=== PATIENT | male | born 1975 | race Caucasian/White ===

== ENCOUNTER 2017-03-31 10:18 | Emergency (ER) | payer SELFPAY ==
[~2017-03-31] VITALS: Ht 182.9 cm; Wt 100.0 kg
[2017-03-31 10:20] VITALS: BP 139/79; PULSE 86; RESP 15; TEMP 98.5; O2SAT 100
[2017-03-31 10:36] VITALS: BP 133/63; PULSE 79; RESP 18; O2SAT 99
[2017-03-31] MEDS ORDERED: SODIUM CHLOR 0.9% 1000 ML INJ 1,000 ML IV ONE (11:15)
[2017-03-31] MEDS ORDERED: PROCHLORPERAZINE INJ 10 MG/2 ML VIAL IV PUSH ONE (11:15)
[2017-03-31] MEDS ORDERED: diphenhydrAMINE HCL 50 MG/ML VIAL IV PUSH ONE (11:15)
[2017-03-31 11:44] LABS: AUTOMATED NEUTROPHIL # 3.7 TH/MM3 (1.8-7.7); BASOPHIL % 0.6 % (0.0-2.0); EOSINOPHIL % 0.7 % (0.0-4.0); HEMATOCRIT 41.6 % (39.0-51.0); HEMO FLAGS DIFF FINAL; LYMPH % 21.7 % (9.0-44.0); LYMPHOCYTE # 1.2 TH/MM3 (1.0-4.8); MEAN CELL VOLUME 89.4 FL (80.0-100.0); MEAN CORPUSCULAR HEMOGLOBIN 29.9 PG (27.0-34.0); MEAN CORPUSCULAR HGB CONC 33.4 % (32.0-36.0); MONO % 12.3 % (0.0-8.0); NEUT % 64.7 % (16.0-70.0); PLATELET COUNT 338 TH/MM3 (150-450); RED BLOOD COUNT 4.65 MIL/MM3 (4.50-5.90); RED CELL DISTRIBUTION WIDTH 13.9 % (11.6-17.2); WHITE BLOOD COUNT 5.7 TH/MM3 (4.0-11.0)
[2017-03-31 12:07] LABS: BICARBONATE 28.6 MEQ/L (21.0-32.0)
[2017-03-31 12:48] VITALS: BP 115/54; PULSE 69; RESP 17; TEMP 99.4; O2SAT 98
--- NOTE | 2017-03-31 14:06 | RADRPT ---
EXAM DATE/TIME: 03/31/2017 13:37 [facility] COMPARISON: No previous studies available for comparison. INDICATIONS : Headache. RADIATION DOSE: 56.35 CTDIvol (mGy) MEDICAL HISTORY : Hypertension. SURGICAL HISTORY : None. ENCOUNTER: Initial ACUITY: 2 days PAIN SCALE: 5/10 LOCATION: Bilateral cranial TECHNIQUE: Multiple contiguous axial images were obtained of the head. Using automated exposure control and adj ustment of the mA and/or kV according to patient size, radiation dose was kept as low as reasonably a chievable to obtain optimal diagnostic quality images. DICOM format image data is available electro nically for review and comparison. FINDINGS: CEREBRUM: The ventricles are normal for age. No evidence of midline shift, mass lesion, hemorrhage or acute in farction. No extra-axial fluid collections are seen. POSTERIOR FOSSA: The cerebellum and brainstem are intact. The 4th ventricle is midline. The cerebellopontine angle i s unremarkable. EXTRACRANIAL: The visualized portion of the orbits is intact. SKULL: The calvaria is intact. No evidence of skull fracture. CONCLUSION: Unremarkable noncontrast exam. Carmine Bolton MD on March 31, 2017 at 14:03 Board Certified Radiologist. This report was verified electronically.
[2017-03-31] MEDS ORDERED: NAPR500T PO (14:20)
--- NOTE | 2017-03-31 14:20 | PD ---
HPI Chief Complaint: Headache Time Seen by Provider: 10:57 Travel History International Travel<30 days: No Contact w/Intl Traveler<30days: No Traveled to known affect area: No History of Present Illness HPI This is a 41-year-old male who presents to the emergency department with several days of a headache right behind his eyes, constant, moderate severity feeling like a throbbing associated with some photophobia. He denies any vomiting but does feel nauseous. He went to the ER for this the other day and he was given something for anxiety and something for GERD. He said he had some blood work done which showed that his LFTs were elevated but he did not have any CT imaging. He says he has a history of hepatitis C and is a former IV drug user. He denies any current drug use or alcohol use. He says he's been checking his blood pressure at home and every day this week it's been very high in the evenings in the 170s and 180s and he feels like this is when his headache gets worse. He said his headache was gradual in onset. He says he is prone to headaches and had headaches a lot when he was younger but hasn't had them in a while. PFSH Past Medical History Anxiety: Yes Cardiovascular Problems: Yes (MURMUR) High Cholesterol: Yes Diabetes: No Diminished Hearing: No Hypertension: Yes Tetanus Vaccination: Unknown Influenza Vaccination: No Family History Family Myocardial Infarction: Yes Social History Alcohol Use: No Tobacco Use: Yes Substance Use: Yes (IV drug user) Allergies-Medications (Allergen,Severity, Reaction): Coded Allergies: No Known Allergies (Unverified , 03/31/17) Reported Meds & Prescriptions Reported Meds & Active Scripts Active No Active Prescriptions or Reported Medications Review of Systems Except as stated in HPI: all other systems reviewed are Neg Physical Exam Narrative GENERAL:Well appearing, no acute distress SKIN: Focused skin assessment warm and dry. HEAD: Atraumatic. Normocephalic. EYES: Pupils equal and round. No injection or drainage. ENT: Moist mucous membranes NECK: Trachea midline. CARDIOVASCULAR: Regular rate and rhythm. No murmur appreciated. RESPIRATORY: Clear to auscultation. Breath sounds equal bilaterally. GASTROINTESTINAL: Abdomen soft, non-tender, nondistended. MUSCULOSKELETAL: No obvious deformities. NEUROLOGICAL: Awake and alert. No obvious cranial nerve deficits. No dysarthria or aphasia. No upper or lower extremity drift. No upper extremity ataxia. Visual mahoney intact. PSYCHIATRIC: Appropriate mood and affect; insight and judgment normal. Data Data Last Documented VS Vital Signs Date Time Temp Pulse Resp B/P (MAP) Pulse Ox O2 Delivery O2 Flow Rate FiO2 03/31/17 12:48 99.4 69 17 115/54 (74) 98 Room Air Orders Orders Complete Blood Count With Diff (03/31/17 11:03) Basic Metabolic Panel (Bmp) (03/31/17 11:03) ^ Insert Iv (03/31/17 11:03) Ct Brain W/O Iv Contrast(Rout) (03/31/17 ) Prochlorperazine Inj (Compazine Inj) (03/31/17 11:15) Diphenhydramine Inj (Benadryl Inj) (03/31/17 11:15) Sodium Chlor 0.9% 1000 Ml Inj (Ns 1000 M (03/31/17 11:15) Labs Laboratory Tests Test 03/31/17 11:20 White Blood Count 5.7 TH/MM3 Red Blood Count 4.65 MIL/MM3 Hemoglobin 13.9 GM/DL Hematocrit 41.6 % Mean Corpuscular Volume 89.4 FL Mean Corpuscular Hemoglobin 29.9 PG Mean Corpuscular Hemoglobin Concent 33.4 % Red Cell Distribution Width 13.9 % Platelet Count 338 TH/MM3 Mean Platelet Volume 6.1 FL Neutrophils (%) (Auto) 64.7 % Lymphocytes (%) (Auto) 21.7 % Monocytes (%) (Auto) 12.3 % Eosinophils (%) (Auto) 0.7 % Basophils (%) (Auto) 0.6 % Neutrophils # (Auto) 3.7 TH/MM3 Lymphocytes # (Auto) 1.2 TH/MM3 Monocytes # (Auto) 0.7 TH/MM3 Eosinophils # (Auto) 0.0 TH/MM3 Basophils # (Auto) 0.0 TH/MM3 CBC Comment DIFF FINAL Differential Comment Blood Urea Nitrogen 7 MG/DL Creatinine 1.18 MG/DL Random Glucose 78 MG/DL Calcium Level 8.3 MG/DL Sodium Level 141 MEQ/L Potassium Level 4.0 MEQ/L Chloride Level 107 MEQ/L Carbon Dioxide Level 28.6 MEQ/L Anion Gap 5 MEQ/L Estimat Glomerular Filtration Rate 68 ML/MIN MDM Medical Decision Making Medical Screen Exam Complete: Yes Emergency Medical Condition: Yes Interpretation(s) No leukocytosis Electrolytes are reassuring Last [address] 03/31/17 0000 Signed Impressions: Service Date/Time: March 13:37 - CONCLUSION: Unremarkable noncontrast exam. Carmine Bolton MD Differential Diagnosis Hemorrhagic stroke, hypertensive urgency, hypertensive emergency, migraine headache, sinusitis, cluster headache, tension headache, subarachnoid hemorrhage Narrative Course This is a 41-year-old male who presents to the emergency Department with a gradual onset headache that feels similar to migraines he's had in the past. I don't suspect subarachnoid hemorrhage given the description of his symptoms, and his normal neurologic exam. I did obtain a CT because his blood pressures been running high and wanted to make sure he didn't have hypertensive bleed. This was normal. Labs are reassuring. His blood pressure has been normal in the emergency department so I don't think he requires any treatment at this time. He did seem really anxious when he first arrived. His symptoms improved significantly with Benadryl and Compazine as well as IV fluids. I think he benefit from an anti-inflammatory and he was given a referral to [facility] as an outpatient. Diagnosis Primary Impression: Headache Qualified Codes: R51 - Headache Patient Instructions: General Instructions Additional Instructions: If you develop severe worsening headache, persistent vomiting, numbness, weakness, difficulty walking or difficulty talking return to the emergency department immediately. Sometimes in the emergency department we did not identify the cause of headaches. If you continued to have headaches it is very important that you followup with your primary care physician as you may need further testing with an MRI. Med/Other Pt SpecificInfo: Prescription(s) given Scripts Naproxen (Naproxen) 500 Mg Tab 500 MG PO BID Y for PAIN SCALE 4 TO 10, #20 TAB 0 Refills Prov: Isabell Ma MD 03/31/17 Disposition: 01 DISCHARGE HOME Condition: Stable Isabell Ma MD Mar 31, 2017 14:20
[2017-03-31 14:45] VITALS: BP 115/65
== END 2017-03-31 14:50 | disposition home or self-care (01) ==
LOC: NEPD 10:18
DX: R51 Headache (principal); Z72.0 Tobacco use
CPT/HCPCS: 70450; 80048; 85025; 96361; 96374; 96375; 99285; J0780; J1200; J7030

== ENCOUNTER 2017-04-04 11:48 | Inpatient (IN) | payer SELFPAY ==
[~2017-04-04] VITALS: Ht 182.9 cm; Wt 98.0 kg
[~2017-04-04 11:48] MED LIST: NAPR500T PO
[2017-04-04 11:49] VITALS: BP 130/78; PULSE 80; RESP 16; TEMP 99.2; O2SAT 96
[2017-04-04] MEDS ORDERED: IOHEXOL 350 MG/ML 10 ML VIAL (for RAD DIAG) IVCONTRAST ONE (11:49)
[2017-04-04] MEDS ORDERED: SODIUM CHLOR 0.9% 1000 ML INJ 1,000 ML IV SCH (13:52)
--- NOTE | 2017-04-04 13:52 | PD ---
HPI Chief Complaint: Medical Clearance Time Seen by Provider: 13:43 Travel History International Travel<30 days: No Contact w/Intl Traveler<30days: No Traveled to known affect area: No History of Present Illness HPI 42-year-old male presents emergency department with 2 week history of worsening nausea, vomiting, and centralized abdominal discomfort. Patient states a history of hepatitis, reportedly both B and C diagnosed one year ago. Patient is currently not under any treatment for that. Patient states he was an IV drug user but hasn't used in 90 days. Patient denies alcohol use, but admits to occasional smoking. Patient also reports occasional and intermittent palpitations. Patient denies chest pain or shortness of breath however. Patient does also state bright red blood per rectum with bowel movement but states he has hemorrhoids. Patient has no history of abdominal surgery. Patient's chief complaint is of worsening heartburn which she states is "terrible". He is having it now. He has been treating it with Rolaids and baking soda without relief. Patient has no known drug allergies. PFSH Past Medical History Anxiety: Yes Cardiovascular Problems: Yes (MURMUR) High Cholesterol: Yes Diabetes: No Diminished Hearing: No Hypertension: Yes Social History Alcohol Use: No Tobacco Use: Yes Substance Use: Yes (IV drug user) Allergies-Medications (Allergen,Severity, Reaction): Coded Allergies: No Known Allergies (Unverified , 03/31/17) Reported Meds & Prescriptions Reported Meds & Active Scripts Active Naproxen 500 Mg Tab 500 Mg PO BID PRN Review of Systems General / Constitutional: Positive: Chills (at night.), No: Fever Eyes: No: Visual changes HENT: Positive: Headaches, No: Vertigo, Lightheadedness, Sore Throat, Rhinitis , Rhinorrhea, Congestion, Nosebleed, Neck Stiffness, Neck Pain, Dental Difficulties, Ear Discharge, Earache Cardiovascular: No: Chest Pain or Discomfort Respiratory: Positive: Night Sweats, No: Cough, Shortness of Breath, Wheezing Gastrointestinal: Positive: Nausea, Vomiting, Abdominal Pain, Loss of Appetite , No: Diarrhea Genitourinary: No: Dysuria Musculoskeletal: No: Pain Skin: No Rash Neurologic: No: Weakness Psychiatric: No: Depression Endocrine: No: Polydipsia Hematologic/Lymphatic: No: Easy Bruising Physical Exam Narrative GENERAL: Well-developed male in no obvious distress. SKIN: Warm and dry. Normal color. Normal turgor. HEAD: Atraumatic. Normocephalic. EYES: Pupils equal and round. No scleral icterus. No injection or drainage. ENT: No nasal bleeding or discharge. Mucous membranes pink and moist. Pharynx is clear. Airway is patent. NECK: Trachea midline. Supple nontender. CARDIOVASCULAR: Regular rate and rhythm. Patient is a 1-2 over 4 systolic murmur. This is known to the patient from childhood. RESPIRATORY: No accessory muscle use. Clear to auscultation. Breath sounds equal bilaterally. GASTROINTESTINAL: Abdomen soft, mild to moderate epigastric tenderness, nondistended. Negative Villarreal sign. Negative CVA tenderness. Hepatic and splenic margins not palpable. MUSCULOSKELETAL: Extremities without clubbing, cyanosis, or edema. No obvious deformities. NEUROLOGICAL: Awake and alert. No obvious cranial nerve deficits. Motor grossly within normal limits. Five out of 5 muscle strength in the arms and legs. Normal speech. PSYCHIATRIC: Appropriate mood and affect; insight and judgment normal. Data Data Last Documented VS Vital Signs Date Time Temp Pulse Resp B/P (MAP) Pulse Ox O2 Delivery O2 Flow Rate FiO2 04/04/17 16:40 73 16 122/72 (89) 100 Room Air 04/04/17 11:49 99.2 Orders Orders Complete Blood Count With Diff (04/04/17 13:52) Comprehensive Metabolic Panel (04/04/17 13:52) Lipase (04/04/17 13:52) Lactic Acid (04/04/17 13:52) Prothrombin Time / Inr (Pt) (04/04/17 13:52) Act Partial Throm Time (Ptt) (04/04/17 13:52) Urinalysis - C+S If Indicated (04/04/17 13:52) Ct Abd/Pel W Iv Contrast(Rout) (04/04/17 13:52) Iv Access Insert/Monitor (04/04/17 13:52) Ecg Monitoring (04/04/17 13:52) Oximetry (04/04/17 13:52) NPO (04/04/17 13:52) Ondansetron Inj (Zofran Inj) (04/04/17 14:00) Pantoprazole Inj (Protonix Inj) (04/04/17 14:00) Sodium Chlor 0.9% 1000 Ml Inj (Ns 1000 M (04/04/17 13:52) Sodium Chloride 0.9% Flush (Ns Flush) (04/04/17 14:00) Electrocardiogram (04/04/17 13:52) Al-Mag Hy-Si 40-40-4 Mg/Ml Liq (Mag-Al P (04/04/17 14:00) Lidocaine 2% Viscous (Xylocaine 2% Visco (04/04/17 14:00) Ckmb (Isoenzyme) Profile (04/04/17 13:52) Troponin I (04/04/17 13:52) Ammonia (04/04/17 14:06) CKMB (04/04/17 14:20) CKMB% (04/04/17 14:20) Iohexol 350 Inj (Omnipaque 350 Inj) (04/04/17 11:49) Labs Laboratory Tests Test 04/04/17 14:20 04/04/17 15:00 White Blood Count 6.4 TH/MM3 Red Blood Count 4.60 MIL/MM3 Hemoglobin 13.7 GM/DL Hematocrit 41.0 % Mean Corpuscular Volume 89.1 FL Mean Corpuscular Hemoglobin 29.7 PG Mean Corpuscular Hemoglobin Concent 33.3 % Red Cell Distribution Width 14.0 % Platelet Count 360 TH/MM3 Mean Platelet Volume 6.1 FL Neutrophils (%) (Auto) 57.9 % Lymphocytes (%) (Auto) 27.5 % Monocytes (%) (Auto) 12.8 % Eosinophils (%) (Auto) 0.9 % Basophils (%) (Auto) 0.9 % Neutrophils # (Auto) 3.7 TH/MM3 Lymphocytes # (Auto) 1.8 TH/MM3 Monocytes # (Auto) 0.8 TH/MM3 Eosinophils # (Auto) 0.1 TH/MM3 Basophils # (Auto) 0.1 TH/MM3 CBC Comment DIFF FINAL Differential Comment Prothrombin Time 10.6 SEC Prothromb Time International Ratio 1.0 RATIO Activated Partial Thromboplast Time 21.5 SEC Blood Urea Nitrogen 12 MG/DL Creatinine 1.27 MG/DL Random Glucose 64 MG/DL Total Protein 8.0 GM/DL Albumin 3.6 GM/DL Calcium Level 9.3 MG/DL Alkaline Phosphatase 60 U/L Aspartate Amino Transf (AST/SGOT) 54 U/L Alanine Aminotransferase (ALT/SGPT) 131 U/L Total Bilirubin 0.5 MG/DL Sodium Level 138 MEQ/L Potassium Level 4.1 MEQ/L Chloride Level 102 MEQ/L Carbon Dioxide Level 29.0 MEQ/L Anion Gap 7 MEQ/L Estimat Glomerular Filtration Rate 62 ML/MIN Lactic Acid Level 1.9 mmol/L Ammonia 22 MCMOL/L Total Creatine Kinase 358 U/L Creatine Kinase MB 1.5 NG/ML Creatine Kinase MB % 0.4 % Troponin I LESS THAN 0.02 NG/ML Lipase 200 U/L Urine Color YELLOW Urine Turbidity CLOUDY Urine pH 7.0 Urine Specific [place] 1.012 Urine Protein NEG mg/dL Urine Glucose (UA) NEG mg/dL Urine Ketones NEG mg/dL Urine Occult Blood NEG Urine Nitrite NEG Urine Bilirubin NEG Urine Urobilinogen LESS THAN 2.0 MG/DL Urine Leukocyte Esterase NEG Urine RBC 1 /hpf Urine WBC 8 /hpf Urine Amorphous Sediment RARE Microscopic Urinalysis Comment CULT NOT INDICATED MDM Medical Decision Making Medical Screen Exam Complete: Yes Emergency Medical Condition: Yes Differential Diagnosis Nausea and vomiting. Epigastric tenderness. Gastritis. Upper GI bleed. Hepatitis. Narrative Course EMR is reviewed and the patient was notably seen 4 days ago for headaches, and a CT scan of the brain without significant findings, and was prescribed Naprosyn 500 mg twice a day and was referred to [facility]. Patient appears medically stable at time of exam. Labs ordered including CBC, CMP, urinalysis, lipase, cardiac panel, and coags and ammonia level. EKG and chest x-ray is ordered. CT of the abdomen is ordered with IV contrast. IV access is obtained patient is given 4 mg of ondansetron IV, 40 mg pantoprazole IV, 1000 mL was normal saline bolus, and a GI cocktail by mouth. CBC is unremarkable. Coagulation studies are normal. CMP is unremarkable except for glucose of 64, AST of 54, ALT of 131, alkaline phosphatase is normal at 60. Ammonia is 22. Lactic acid is 1.9. Creatinine kinase is 358, and troponin is less than 0.02 Lipase is normal at 200. CT shows abnormal findings including: CONCLUSION: 1. Multiple loops of minimally distended fluid filled jejunum in the left upper quadrant with mild fecalization and apparent focal transition points in the left upper quadrant proximally and left midabdomen distally at the level of the proximal ileum. Although not completely decompressed, distal ileal loops are much smaller in caliber and not fluid-filled. Findings are most compatible with developing partial small bowel obstruction secondary to adhesions or inflammatory bowel disease in the appropriate clinical setting. Less likely differential considerations include developing gastroenteritis. Patient will be admitted for observation and bowel rest. Call was placed to the hospitalist for admission. Diagnosis Primary Impression: Gastritis Qualified Codes: K29.00 - Acute gastritis without bleeding Additional Impression: Small bowel obstruction, partial Admitting Information Admitting Physician Requests: Observation Condition: Stable Mehdi Curry Apr 04, 2017 13:52
[2017-04-04] MEDS ORDERED: ONDANSETRON HCL 4 MG/2 ML VIAL IVP ONE (14:00)
[2017-04-04] MEDS ORDERED: LIDOCAINE VISCOUS 2% SOLN 15 ML UDC PO ONE (14:00)
[2017-04-04] MEDS ORDERED: ALUMINUM/MAGNESIUM/SIMETH 30 ML CUP PO ONE (14:00)
[2017-04-04] MEDS ORDERED: PANTOPRAZOLE SODIUM 40 MG VIAL IVP ONE (14:00)
[2017-04-04 14:47] LABS: AUTOMATED NEUTROPHIL # 3.7 TH/MM3 (1.8-7.7); BASOPHIL # 0.1 TH/MM3 (0-0.2); BASOPHIL % 0.9 % (0.0-2.0); EOSINOPHIL # 0.1 TH/MM3 (0-0.4); EOSINOPHIL % 0.9 % (0.0-4.0); HEMO FLAGS DIFF FINAL; LYMPH % 27.5 % (9.0-44.0); LYMPHOCYTE # 1.8 TH/MM3 (1.0-4.8); MEAN CELL VOLUME 89.1 FL (80.0-100.0); MEAN CORPUSCULAR HEMOGLOBIN 29.7 PG (27.0-34.0); MEAN CORPUSCULAR HGB CONC 33.3 % (32.0-36.0); MONO % 12.8 % (0.0-8.0); NEUT % 57.9 % (16.0-70.0); PLATELET COUNT 360 TH/MM3 (150-450); WHITE BLOOD COUNT 6.4 TH/MM3 (4.0-11.0)
[2017-04-04 14:56] LABS: APTT (PATIENT) 21.5 SEC (24.3-30.1); PROTHROMBIN TIME - PATIENT 10.6 SEC (9.8-11.6)
[2017-04-04 15:04] LABS: ALT (GPT) 131 U/L (12-78); ANION GAP 7 MEQ/L (5-15); AST (GOT) 54 U/L (15-37); BLOOD UREA NITROGEN 12 MG/DL (7-18); CHLORIDE 102 MEQ/L (98-107); GLOMERULAR FILTRATION RATE 62 ML/MIN (>89); POTASSIUM 4.1 MEQ/L (3.5-5.1); SODIUM (NA) 138 MEQ/L (136-145)
[2017-04-04 15:19] LABS: ALKALINE PHOSPHATASE 60 U/L (45-117); CREATINE KINASE 358 U/L (39-308); TOTAL BILIRUBIN ADULT 0.5 MG/DL (0.2-1.0)
[2017-04-04 15:27] LABS: BLOOD, URINE NEG (NEG); GLUCOSE,URINE NEG (NEG); KETONE, URINE NEG (NEG); NITRITE,URINE NEG (NEG); URINE COLOR YELLOW (YELLW/STRAW)
[2017-04-04 15:32] LABS: CKMB 1.5 NG/ML (0.5-3.6)
[2017-04-04 15:32] LABS: COMMENT (UR) CULT NOT INDICATED; CULTURE IF INDICATED CULT NOT INDICATED
--- NOTE | 2017-04-04 16:34 | RADRPT ---
EXAM DATE/TIME: 04/04/2017 15:47 [facility] COMPARISON: No previous studies available for comparison. INDICATIONS : Epigastric burning and pain nausea and vomiting for one week. IV CONTRAST: 82 cc Omnipaque 350 (iohexol) IV ORAL CONTRAST: No oral contrast ingested. RADIATION DOSE: 9.96 CTDIvol (mGy) MEDICAL HISTORY : Hepatitis SURGICAL HISTORY : None. ENCOUNTER: Initial ACUITY: 1 week PAIN SCALE: 8/10 LOCATION: Abdomen TECHNIQUE: Volumetric scanning of the abdomen and pelvis was performed. Using automated exposure control and ad justment of the mA and/or kV according to patient size, radiation dose was kept as low as reasonably achievable to obtain optimal diagnostic quality images. DICOM format image data is available electro nically for review and comparison. FINDINGS: LOWER LUNGS: The visualized lower lungs are clear. LIVER: Homogeneous density without lesion. There is no dilation of the biliary tree. No calcified gallston es. SPLEEN: Normal size without lesion. PANCREAS: Within normal limits. KIDNEYS: Normal in size and shape. There is no mass, stone or hydronephrosis. ADRENAL GLANDS: Within normal limits. VASCULAR: There is no aortic aneurysm. BOWEL/MESENTERY: Examination is abnormal. There are multiple loops of minimally distended jejunum in the left upper qu adrant with some mild fecalization measuring up to 3.2 cm. There are apparent focal transition points in the left upper quadrant proximally and left midabdomen distally at the level of the proximal ileu m. No pneumatosis or free air. Remaining small bowel loops are smaller in caliber and not fluid-fille d old though not completely decompressed. Colon appears unremarkable. No significant free fluid or dr ainable fluid collection. ABDOMINAL WALL: Within normal limits. RETROPERITONEUM: There is no lymphadenopathy. BLADDER: No wall thickening or mass. REPRODUCTIVE: Prostate is mildly prominent and contains calcifications. INGUINAL: There is no lymphadenopathy or hernia. MUSCULOSKELETAL: Within normal limits for patient age. CONCLUSION: 1. Multiple loops of minimally distended fluid filled jejunum in the left upper quadrant with mild fe calization and apparent focal transition points in the left upper quadrant proximally and left midabd omen distally at the level of the proximal ileum. Although not completely decompressed, distal ileal loops are much smaller in caliber and not fluid-filled. Findings are most compatible with developing partial small bowel obstruction secondary to adhesions or inflammatory bowel disease in the appropria te clinical setting. Less likely differential considerations include developing gastroenteritis. Lorenzo Pisano MD on April 04, 2017 at 16:20 Board Certified Radiologist. This report was verified electronically.
[2017-04-04 16:40] VITALS: BP 122/72; PULSE 73; RESP 16; O2SAT 100
--- NOTE | 2017-04-04 17:30 | HHI.HP ---
[facility] Service [facility] Primary Care Physician No Primary Care Physician Admission Diagnosis Partial Small Bowel Obstruction Diagnoses: (1) Small bowel obstruction, partial Diagnosis: Principal Chief Complaint: abdominal pain Travel History International Travel<30 Days: No Contact w/Intl Traveler <30 Da: No Traveled to Known Affected Are: No History of Present Illness patient is a 42 y/o male with history of hepatitis B and C who presented to ER with abdominal pain. he was seen in ER a few days ago for the headache and was discharged home with Naproxen. he says that he's had abdominal pain, nausea, vomiting for the past two weeks. pain is more or less generalized. he says that he's had on and off rectal bleed. he had some fever and chills at home. there's no report of recent weight change although he says that he's lost his appetite.he doesn't recall any similar pain in the past. Review of Systems Constitutional: COMPLAINS OF: Change in appetite, DENIES: Fever, Chills, Night Sweats Eyes: DENIES: Blurred vision, Diplopia, Vision loss, Double Vision Ears, nose, mouth, throat: DENIES: Tinnitus, Vertigo, Throat pain, Epistaxis Respiratory: DENIES: Apneas, Cough, Snoring, Wheezing, Hemoptysis, Sputum production, Shortness of breath Cardiovascular: DENIES: Chest pain, Palpitations, Syncope, Dyspnea on Exertion , PND, Lower Extremity Edema, Orthopnea, Claudication Gastrointestinal: COMPLAINS OF: Abdominal pain, Bloody stools, Nausea, Vomiting , DENIES: Black stools, Constipation, Diarrhea, Difficulty Swallowing, Anorexia Genitourinary: DENIES: Urinary frequency, Urgency, Hematuria, Dysuria Musculoskeletal: DENIES: Joint pain, Muscle aches, Stiffness, Joint Swelling Integumentary: DENIES: Rash Neurologic: DENIES: Abnormal gait, Headache, Localized weakness, Paresthesias, Seizures, Speech Problems, Tremor, Poor Balance Psychiatric: DENIES: Anxiety, Confusion, Mood changes, Depression, Hallucinations, Agitation, Suicidal Ideation, Homicidal Ideation, Delusions Past Family Social History Past Medical History hepatitis B and C. Past Surgical History surgery on the elbow. Reported Medications none reported. Allergies: Coded Allergies: No Known Allergies (Unverified , 03/31/17) Active Ordered Medications Current Medications Ondansetron HCl (Zofran Inj) 4 mg ONCE ONCE IVP Last administered on 15:54; Start 04/04/17 at 14:00; Stop 04/04/17 at 14:01; Status DC Pantoprazole Sodium (Protonix Inj) 40 mg ONCE ONCE IVP Last administered on 15:54; Start 04/04/17 at 14:00; Stop 04/04/17 at 14:01; Status DC Sodium Chloride 1,000 ml @ 1,000 mls/hr Q1H IV Last administered on 04/04/17 15:53; Start 04/04/17 at 13:52; Stop 04/04/17 at 14:51; Status DC Sodium Chloride (NS Flush) 2 ml UNSCH PRN IV FLUSH FLUSH AFTER USING IV ACCESS ; Start 04/04/17 at 14:00 Al Hydrox/Mg Hydrox/Simethicone (Mag-Al Plus Susp Liq) 30 ml ONCE ONCE PO Last administered on 04/04/17 15:54; Start 04/04/17 at 14:00; Stop 04/04/17 at 14:01; Status DC Lidocaine HCl (Xylocaine 2% Viscous) 15 ml ONCE ONCE PO Last administered on 04/04/17 15:55; Start 04/04/17 at 14:00; Stop 04/04/17 at 14:01; Status DC Iohexol (Omnipaque 350 Inj) 82 ml STK-MED ONCE IVCONTRAST Last administered on 04/04/17 11:49; Start 04/04/17 at 11:49; Stop 04/04/17 at 16:06; Status DC Family History not relevant to this admission. Social History smokes a few cigarettes a day. doesn't drink. Ex-IV drug abuser. Physical Exam Vital Signs Vital Signs Date Time Temp Pulse Resp B/P (MAP) Pulse Ox O2 Delivery O2 Flow Rate FiO2 04/04/17 16:40 73 16 122/72 (89) 100 Room Air 04/04/17 11:49 99.2 80 16 130/78 (95) 96 Physical Exam GENERAL: This is a well-nourished, well-developed patient, in no apparent distress. SKIN: No rashes, ecchymoses or lesions. Cool and dry. HEAD: Atraumatic. Normocephalic. No temporal or scalp tenderness. EYES: Pupils equal round and reactive. Extraocular motions intact. No scleral icterus. No injection or drainage. ENT: Nose without bleeding, purulent drainage or septal hematoma. Throat without erythema, tonsillar hypertrophy or exudate. Uvula midline. Airway patent. NECK: Trachea midline. No JVD or lymphadenopathy. Supple, nontender, no meningeal signs. CARDIOVASCULAR: Regular rate and rhythm without murmurs, gallops, or rubs. RESPIRATORY: Clear to auscultation. Breath sounds equal bilaterally. No wheezes , rales, or rhonchi. GASTROINTESTINAL: Abdomen soft, mild generalized tenderness, nondistended. No hepato-splenomegaly, or palpable masses. No guarding. MUSCULOSKELETAL: Extremities without clubbing, cyanosis, or edema. No joint tenderness, effusion, or edema noted. No calf tenderness. Negative Homans sign bilaterally. NEUROLOGICAL: Awake and alert. Cranial nerves II through XII intact. Motor and sensory grossly within normal limits. Five out of 5 muscle strength in all muscle groups. Normal speech. Laboratory Laboratory Tests Test 04/04/17 14:20 04/04/17 15:00 White Blood Count 6.4 Red Blood Count 4.60 Hemoglobin 13.7 Hematocrit 41.0 Mean Corpuscular Volume 89.1 Mean Corpuscular Hemoglobin 29.7 Mean Corpuscular Hemoglobin Concent 33.3 Red Cell Distribution Width 14.0 Platelet Count 360 Mean Platelet Volume 6.1 Neutrophils (%) (Auto) 57.9 Lymphocytes (%) (Auto) 27.5 Monocytes (%) (Auto) 12.8 Eosinophils (%) (Auto) 0.9 Basophils (%) (Auto) 0.9 Neutrophils # (Auto) 3.7 Lymphocytes # (Auto) 1.8 Monocytes # (Auto) 0.8 Eosinophils # (Auto) 0.1 Basophils # (Auto) 0.1 CBC Comment DIFF FINAL Differential Comment Prothrombin Time 10.6 Prothromb Time International Ratio 1.0 Activated Partial Thromboplast Time 21.5 Blood Urea Nitrogen 12 Creatinine 1.27 Random Glucose 64 Total Protein 8.0 Albumin 3.6 Calcium Level 9.3 Alkaline Phosphatase 60 Aspartate Amino Transf (AST/SGOT) 54 Alanine Aminotransferase (ALT/SGPT) 131 Total Bilirubin 0.5 Sodium Level 138 Potassium Level 4.1 Chloride Level 102 Carbon Dioxide Level 29.0 Anion Gap 7 Estimat Glomerular Filtration Rate 62 Lactic Acid Level 1.9 Ammonia 22 Total Creatine Kinase 358 Creatine Kinase MB 1.5 Creatine Kinase MB % 0.4 Troponin I LESS THAN 0.02 Lipase 200 Urine Color YELLOW Urine Turbidity CLOUDY Urine pH 7.0 Urine Specific [place] 1.012 Urine Protein NEG Urine Glucose (UA) NEG Urine Ketones NEG Urine Occult Blood NEG Urine Nitrite NEG Urine Bilirubin NEG Urine Urobilinogen LESS THAN 2.0 Urine Leukocyte Esterase NEG Urine RBC 1 Urine WBC 8 Urine Amorphous Sediment RARE Microscopic Urinalysis Comment CULT NOT INDICATED Result Diagram: 04/04/17 1420 04/04/17 142 Imaging Last Impressions Abdomen/Pelvis CT 04/04/17 1352 Signed Impressions: Service Date/Time: Tuesday, April 04, 2017 15:47 - CONCLUSION: 1. Multiple loops of minimally distended fluid filled jejunum in the left upper quadrant with mild fecalization and apparent focal transition points in the left upper quadrant proximally and left midabdomen distally at the level of the proximal ileum. Although not completely decompressed, distal ileal loops are much smaller in caliber and not fluid-filled. Findings are most compatible with developing partial small bowel obstruction secondary to adhesions or inflammatory bowel disease in the appropriate clinical setting. Less likely differential considerations include developing gastroenteritis. MD Antoinette Galindo VTE Risk Assessment Howardrini VTE Risk Assessment: Mod/High Risk (score >= 2) VTE Pharm Contraindication: Hemorrhage Caprini Risk Assessment Model Point Value = 1 Point Value = 2 Point Value = 3 Point Value = 5 Age 41-60 Minor surgery BMI > 25 kg/m2 Swollen legs Varicose veins or History of unexplained or recurrent spontaneous Oral contraceptives or hormone replacement Sepsis (< 1 month) Serious lung disease, including pneumonia (< 1 month) Abnormal pulmonary function Acute myocardial infarction Congestive heart failure (< 1 month) History of inflammatory bowel disease Medical patient at bed rest Age 61-74 Arthroscopic surgery Major open surgery (> 45 min) Laparoscopic surgery (> 45 min) Malignancy Confined to bed (> 72 hours) Immobilizing plaster cast Central venous access Age >= 75 History of VTE Family history of VTE Factor V Leiden Prothrombin [id number] Lupus anticoagulant Anticardiolipin antibodies Elevated serum homocysteine Heparin-induced thrombocytopenia Other congenital or acquired thrombophilia Stroke (< 1 month) Elective arthroplasty Hip, pelvis, or leg fracture Acute spinal cord injury (< 1 month) Prophylaxis Regimen Total Risk Factor Score Risk Level Prophylaxis Regimen 0-1 Low Early ambulation 2 Moderate Order ONE of the following: *Sequential Compression Device (SCD) *Heparin 5000 units SQ BID 3-4 Higher Order ONE of the following medications: *Heparin 5000 units SQ TID *Enoxaparin/Lovenox 40 mg SQ daily (WT < 150 kg, CrCl > 30 mL/min) *Enoxaparin/Lovenox 30 mg SQ daily (WT < 150 kg, CrCl > 10-29 mL/min) *Enoxaparin/Lovenox 30 mg SQ BID (WT < 150 kg, CrCl > 30 mL/min) AND/OR *Sequential Compression Device (SCD) 5 or more Highest Order ONE of the following medications: *Heparin 5000 units SQ TID (Preferred with Epidurals) *Enoxaparin/Lovenox 40 mg SQ daily (WT < 150 kg, CrCl > 30 mL/min) *Enoxaparin/Lovenox 30 mg SQ daily (WT < 150 kg, CrCl > 10-29 mL/min) *Enoxaparin/Lovenox 30 mg SQ BID (WT < 150 kg, CrCl > 30 mL/min) AND *Sequential Compression Device (SCD) Assessment and Plan Assessment and Plan A/P - possible early small bowel obstruction with reported rectal bleed keep NPO- start on IV fluid- antiemetics as needed- consult GI -elevated LFT's due to hepatitis B and C- will monitor -DVT prophylaxis with SCD's- no chemical prophylaxis due to reported rectal bleed. Discussed Condition With ER and the patient. Physician Certification 2 Midnight Certification Type: Admission for Inpatient Services Order for Inpatient Services The services are ordered in accordance with Medicare regulations or non- Medicare payer requirements, as applicable. In the case of services not specified as inpatient-only, they are appropriately provided as inpatient services in accordance with the 2-midnight benchmark. Estimated LOS (days): 2 days is the estimated time the patient will need to remain in the hospital, assuming treatment plan goals are met and no additional complications. Post-Hospital Plan: Home Physician Certification 2 Midnight Certification Type: Admission for Inpatient Services Order for Inpatient Services The services are ordered in accordance with Medicare regulations or non- Medicare payer requirements, as applicable. In the case of services not specified as inpatient-only, they are appropriately provided as inpatient services in accordance with the 2-midnight benchmark. Estimated LOS (days): 2 days is the estimated time the patient will need to remain in the hospital, assuming treatment plan goals are met and no additional complications. Post-Hospital Plan: Home Billie Hanna MD Apr 04, 2017 17:30
[2017-04-04] MEDS ORDERED: ONDANSETRON HCL 4 MG/2 ML VIAL IV PUSH PRN (18:00)
[2017-04-04] MEDS: DEXT 5%-NACL 0.9% 1000 ML INJ 1,000 ML IV SCH (18:36)
[2017-04-04 20:28] VITALS: BP 134/70; PULSE 67; RESP 20; TEMP 98.2; O2SAT 98
[2017-04-05 00:38] VITALS: BP 115/56; PULSE 68; RESP 20; TEMP 98.6; O2SAT 98
[2017-04-05] MEDS: DEXT 5%-NACL 0.9% 1000 ML INJ 1,000 ML IV SCH ×2 (04:54→14:00)
[2017-04-05 07:37] LABS: AUTOMATED NEUTROPHIL # 2.8 TH/MM3 (1.8-7.7); BASOPHIL # 0.1 TH/MM3 (0-0.2); BASOPHIL % 1.1 % (0.0-2.0); EOSINOPHIL # 0.1 TH/MM3 (0-0.4); EOSINOPHIL % 1.9 % (0.0-4.0); HEMO FLAGS DIFF FINAL; LYMPH % 35.3 % (9.0-44.0); MEAN CELL VOLUME 89.2 FL (80.0-100.0); MEAN CORPUSCULAR HEMOGLOBIN 30.1 PG (27.0-34.0); MEAN CORPUSCULAR HGB CONC 33.8 % (32.0-36.0); MONO % 12.3 % (0.0-8.0); NEUT % 49.4 % (16.0-70.0); PLATELET COUNT 331 TH/MM3 (150-450); RED BLOOD COUNT 4.38 MIL/MM3 (4.50-5.90); RED CELL DISTRIBUTION WIDTH 13.8 % (11.6-17.2); WHITE BLOOD COUNT 5.6 TH/MM3 (4.0-11.0)
[2017-04-05 08:00] VITALS: BP 117/67; PULSE 66; RESP 16; TEMP 97.8; O2SAT 97
[2017-04-05 08:04] LABS: BICARBONATE 26.9 MEQ/L (21.0-32.0); POTASSIUM 3.9 MEQ/L (3.5-5.1)
--- NOTE | 2017-04-05 08:14 | HHI.PR ---
Subjective Remarks in no acute distress. abdominal pain is better. no nausea or vomiting. no BM. afebrile. Objective Vitals Vital Signs Date Time Temp Pulse Resp B/P (MAP) Pulse Ox O2 Delivery O2 Flow Rate FiO2 04/05/17 00:38 98.6 68 20 115/56 (75) 98 04/04/17 20:28 98.2 67 20 134/70 (91) 98 04/04/17 16:40 73 16 122/72 (89) 100 Room Air 04/04/17 11:49 99.2 80 16 130/78 (95) 96 I/O 04/04/17 04/04/17 04/04/17 04/05/17 04/05/17 04/05/17 07:00 15:00 23:00 07:00 15:00 23:00 Intake Total 1000 ml 1000 ml Balance 1000 ml 1000 ml Intake IV Total 1000 ml 1000 ml # Voids 4 Result Diagram: 04/05/17 0600 04/05/17 0600 Imaging Last Impressions Abdomen/Pelvis CT 04/04/17 1352 Signed Impressions: Service Date/Time: Tuesday, April 04, 2017 15:47 - CONCLUSION: 1. Multiple loops of minimally distended fluid filled jejunum in the left upper quadrant with mild fecalization and apparent focal transition points in the left upper quadrant proximally and left midabdomen distally at the level of the proximal ileum. Although not completely decompressed, distal ileal loops are much smaller in caliber and not fluid-filled. Findings are most compatible with developing partial small bowel obstruction secondary to adhesions or inflammatory bowel disease in the appropriate clinical setting. Less likely differential considerations include developing gastroenteritis. Lorenzo Pisano MD Objective Remarks GENERAL: This is a well-nourished, well-developed patient, in no apparent distress. CARDIOVASCULAR: Regular rate and regular rhythm without murmurs, gallops, or rubs. RESPIRATORY: Clear to auscultation. Breath sounds equal bilaterally. No wheezes , rales, or rhonchi. GASTROINTESTINAL: Abdomen soft, non-tender, nondistended. Normal, active bowel sounds MUSCULOSKELETAL: Extremities without clubbing, cyanosis, or edema. NEURO: Alert & Oriented x4 to person, place, time, situation. Moves all ext x4 Medications and IVs Current Medications Ondansetron HCl (Zofran Inj) 4 mg ONCE ONCE IVP Last administered on 15:54; Start 04/04/17 at 14:00; Stop 04/04/17 at 14:01; Status DC Pantoprazole Sodium (Protonix Inj) 40 mg ONCE ONCE IVP Last administered on 15:54; Start 04/04/17 at 14:00; Stop 04/04/17 at 14:01; Status DC Sodium Chloride 1,000 ml @ 1,000 mls/hr Q1H IV Last administered on 04/04/17 15:53; Start 04/04/17 at 13:52; Stop 04/04/17 at 14:51; Status DC Sodium Chloride (NS Flush) 2 ml UNSCH PRN IV FLUSH FLUSH AFTER USING IV ACCESS ; Start 04/04/17 at 14:00 Al Hydrox/Mg Hydrox/Simethicone (Mag-Al Plus Susp Liq) 30 ml ONCE ONCE PO Last administered on 04/04/17 15:54; Start 04/04/17 at 14:00; Stop 04/04/17 at 14:01; Status DC Lidocaine HCl (Xylocaine 2% Viscous) 15 ml ONCE ONCE PO Last administered on 04/04/17 15:55; Start 04/04/17 at 14:00; Stop 04/04/17 at 14:01; Status DC Iohexol (Omnipaque 350 Inj) 82 ml STK-MED ONCE IVCONTRAST Last administered on 04/04/17 11:49; Start 04/04/17 at 11:49; Stop 04/04/17 at 16:06; Status DC Dextrose/Sodium Chloride 1,000 ml @ 100 mls/hr Q10H IV Last administered on 04:54; Start 04/04/17 at 18:00 Ondansetron HCl (Zofran Inj) 4 mg Q8HR PRN IV PUSH NAUSEA; Start 04/04/17 at 18 :00 A/P Problem List: (1) Small bowel obstruction, partial ICD Code: K56.600 - Partial intestinal obstruction, unspecified as to cause Status: Acute Assessment and Plan A/P - possible early small bowel obstruction with reported rectal bleed keep NPO- continue IV fluid- antiemetics as needed- awaiting GI evaluation. -elevated LFT's due to hepatitis B and C- will monitor -DVT prophylaxis with SCD's- no chemical prophylaxis due to reported rectal bleed. Discharge Planning awaiting GI evaluation and recommendations. Billie Hanna MD Apr 05, 2017 08:14
--- NOTE | 2017-04-05 10:00 | EKG ---
Date Performed: 04/04/2017 Time Performed: 14:58:49 PTAGE: 42 years EKG: Sinus rhythm POSSIBLE LEFT ATRIAL ENLARGEMENT INCOMPLETE RIGHT BUNDLE BRANCH BLOCK BORDERLINE ECG PREVIOUS TRACING : 08/09/2015 10.53 Compared to prior tracing no significant change DOCTOR: Danie Mitchell Interpretating Date/Time 04/05/2017 09:56:57
--- NOTE | 2017-04-05 10:58 | PD.CONS ---
HPI History of Present Illness This is a 42 year old male who presented to the emergency room for evaluation of "flulike symptoms" for the past 2 weeks. He states that for the past 2 weeks he's been having frequent migraines, constant heartburn, intermittent nausea and vomiting, mild epigastric/right upper quadrant pain, mucus from his rectum, and bloody stools. He states that he does not typically have heartburn or reflux but these had a constantly for the past 2 weeks and has not had any relief with Tums, Rolaids, and baking soda. The pain in his epigastric area/ ruq is very mild and he describes it as an intermittent dull ache. He has intermittent nausea and vomiting without hematemesis. He denies any diarrhea. He reports that he has been constipated 1 day, but does not typically have any problems with this. He reports that he didn't have a normal bowel movement this morning. There is no blood in it. He reports that for the past few years he's been having intermittent clear mucous from his rectum and red blood mixed within his stool. He reports that when he has cirrhosis some moderate amount. He does not associate it with straining although he does have a history of hemorrhoids. He denies any weight loss. He denies any fevers or chills. He has had generalized malaise. CT scan abdomen and pelvis (04/04/17) revealed multiple loops of minimally distended fluid filled jejunum in the left upper quadrant with mild focalization and apparent focal transition points in the left upper quadrant proximally and left midabdomen distally at the level of the proximal ileum. Although not completely decompressed, distal ileal loops are much smaller in caliber and not fluid filled. Findings are most compatible with developing partial small bowel obstruction secondary to adhesions or inflammatory bowel disease in the appropriate clinical setting. Less likely differential considerations include developing gastroenteritis. He denies any family history of inflammatory bowel disease. His last colonoscopy was about 5 years ago. Clinically he is not distended and is no longer having nausea or vomiting. He had a normal bowel movement without bleeding earlier today. Of note he reports that he was diagnosed with both hepatitis B and C one year ago and is treatment hilaria. (Kateryna Vazquez) [facility] Past Medical History Reports hx of Hepatitis B and C Hemorrhoids Past Surgical History Surgery on elbow Colonoscopy (Kateryna Vazquez) Coded Allergies: No Known Allergies (Unverified , 03/31/17) Medications Allergies Coded Allergies Type Severity Reaction Last Updated Verified No Known Allergies 03/31/17 No Active Scripts Medications Dose Route/Sig Max Daily Dose Days Date Category Naproxen 500 Mg Tab 500 Mg PO BID PRN 03/31/17 Rx Family History Mother had diabetes Father from an [facility] Social History Smokes 2-3 cigarettes per day Does not use alcohol Denies illicit drug use, history of IV drug abuse (Kateryna Vazquez) Review of Systems Constitutional: COMPLAINS OF: Fatigue, DENIES: Fever, Weight loss, Chills, Change in appetite Respiratory: DENIES: Cough Cardiovascular: DENIES: Chest pain Gastrointestinal: COMPLAINS OF: Abdominal pain, Bloody stools, Constipation, Nausea, Vomiting, Heartburn, DENIES: Black stools, Diarrhea, Swelling of Abdomen , Hematemesis Musculoskeletal: COMPLAINS OF: Muscle aches Hematologic/lymphatic: DENIES: Bruising Neurologic: COMPLAINS OF: Headache Psychiatric: DENIES: Confusion (Kateryna Vazquez) GI Exam Vitals I&O Vital Signs Date Time Temp Pulse Resp B/P (MAP) Pulse Ox O2 Delivery O2 Flow Rate FiO2 04/05/17 08:00 97.8 66 16 117/67 (84) 97 04/05/17 00:38 98.6 68 20 115/56 (75) 98 04/04/17 20:28 98.2 67 20 134/70 (91) 98 04/04/17 16:40 73 16 122/72 (89) 100 Room Air 04/04/17 11:49 99.2 80 16 130/78 (95) 96 I/O 04/04/17 04/04/17 04/04/17 04/05/17 04/05/17 04/05/17 07:00 15:00 23:00 07:00 15:00 23:00 Intake Total 1000 ml 1000 ml Balance 1000 ml 1000 ml Intake IV Total 1000 ml 1000 ml # Voids 4 Imaging Last Impressions Abdomen/Pelvis CT 04/04/17 2762 Signed Impressions: Service Date/Time: Tuesday, April 04, 2017 15:47 - CONCLUSION: 1. Multiple loops of minimally distended fluid filled jejunum in the left upper quadrant with mild fecalization and apparent focal transition points in the left upper quadrant proximally and left midabdomen distally at the level of the proximal ileum. Although not completely decompressed, distal ileal loops are much smaller in caliber and not fluid-filled. Findings are most compatible with developing partial small bowel obstruction secondary to adhesions or inflammatory bowel disease in the appropriate clinical setting. Less likely differential considerations include developing gastroenteritis. Lorenzo Pisano MD Laboratory Test 04/04/17 14:20 04/04/17 15:00 04/05/17 06:00 White Blood Count 6.4 TH/MM3 5.6 TH/MM3 Red Blood Count 4.60 MIL/MM3 4.38 MIL/MM3 Hemoglobin 13.7 GM/DL 13.2 GM/DL Hematocrit 41.0 % 39.0 % Mean Corpuscular Volume 89.1 FL 89.2 FL Mean Corpuscular Hemoglobin 29.7 PG 30.1 PG Mean Corpuscular Hemoglobin Concent 33.3 % 33.8 % Red Cell Distribution Width 14.0 % 13.8 % Platelet Count 360 TH/MM3 331 TH/MM3 Mean Platelet Volume 6.1 FL 6.7 FL Neutrophils (%) (Auto) 57.9 % 49.4 % Lymphocytes (%) (Auto) 27.5 % 35.3 % Monocytes (%) (Auto) 12.8 % 12.3 % Eosinophils (%) (Auto) 0.9 % 1.9 % Basophils (%) (Auto) 0.9 % 1.1 % Neutrophils # (Auto) 3.7 TH/MM3 2.8 TH/MM3 Lymphocytes # (Auto) 1.8 TH/MM3 2.0 TH/MM3 Monocytes # (Auto) 0.8 TH/MM3 0.7 TH/MM3 Eosinophils # (Auto) 0.1 TH/MM3 0.1 TH/MM3 Basophils # (Auto) 0.1 TH/MM3 0.1 TH/MM3 CBC Comment DIFF FINAL DIFF FINAL Differential Comment Erythrocyte Sedimentation Rate 5 mm/hr Prothrombin Time 10.6 SEC Prothromb Time International Ratio 1.0 RATIO Activated Partial Thromboplast Time 21.5 SEC Blood Urea Nitrogen 12 MG/DL 10 MG/DL Creatinine 1.27 MG/DL 1.17 MG/DL Random Glucose 64 MG/DL 79 MG/DL Total Protein 8.0 GM/DL Albumin 3.6 GM/DL Calcium Level 9.3 MG/DL 8.4 MG/DL Alkaline Phosphatase 60 U/L Aspartate Amino Transf (AST/SGOT) 54 U/L Alanine Aminotransferase (ALT/SGPT) 131 U/L Total Bilirubin 0.5 MG/DL Sodium Level 138 MEQ/L 139 MEQ/L Potassium Level 4.1 MEQ/L 3.9 MEQ/L Chloride Level 102 MEQ/L 106 MEQ/L Carbon Dioxide Level 29.0 MEQ/L 26.9 MEQ/L Anion Gap 7 MEQ/L 6 MEQ/L Estimat Glomerular Filtration Rate 62 ML/MIN 69 ML/MIN Lactic Acid Level 1.9 mmol/L Ammonia 22 MCMOL/L Total Creatine Kinase 358 U/L Creatine Kinase MB 1.5 NG/ML Creatine Kinase MB % 0.4 % Troponin I LESS THAN 0.02 NG/ML Lipase 200 U/L Urine Color YELLOW Urine Turbidity CLOUDY Urine pH 7.0 Urine Specific [place] 1.012 Urine Protein NEG mg/dL Urine Glucose (UA) NEG mg/dL Urine Ketones NEG mg/dL Urine Occult Blood NEG Urine Nitrite NEG Urine Bilirubin NEG Urine Urobilinogen LESS THAN 2.0 MG/DL Urine Leukocyte Esterase NEG Urine RBC 1 /hpf Urine WBC 8 /hpf Urine Amorphous Sediment RARE Microscopic Urinalysis Comment CULT NOT INDICATED Physical Examination HEENT: Normocephalic; atraumatic; no jaundice. CHEST: CTA CARDIAC: RRR ABDOMEN: Soft, nondistended, nontender; no hepatosplenomegaly; bowel sounds are present in all four quadrants. EXTREMITIES: No clubbing, cyanosis, or edema. SKIN: Normal; no rash; no jaundice. 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 (Kateryna Vazquez) Assessment and Plan Plan ASSESSMENT: - PSBO with n/v, abdominal discomfort. CT scan abdomen and pelvis (04/04/17) revealed multiple loops of minimally distended fluid filled jejunum in the left upper quadrant with mild focalization and apparent focal transition points in the left upper quadrant proximally and left midabdomen distally at the level of the proximal ileum. Although not completely decompressed, distal ileal loops are much smaller in caliber and not fluid filled. Findings are most compatible with developing partial small bowel obstruction secondary to adhesions or inflammatory bowel disease in the appropriate clinical setting. Less likely differential considerations include developing gastroenteritis. He denies any family history of inflammatory bowel disease. Colonoscopy 5 years ago. Clinically he is not distended and is no longer having nausea or vomiting, although he is NPO. + normal bm today. Denies family hx of IBD. Clinically not distended, no n/v. good bm. Will prep for egd/colonoscopy in am. - Intermittent hematochezia/clear mucous from rectum. States he has had this for a long time and periodically has large amount of blood mixed within stool. Does have hx of hemorrhoids. CBC normal. Start clears and plan for egd/colonoscopy in am. - Severe GERD. Does not usually have this, but has had it constantly for 2 weeks. Add PPI. Will plan for EGD in am. - Elevated LFTs, with reported hx of Hepatitis B/C. T. Tili 0.5, ST 54, ALT 131 , Alk Phosph. Liver workup, Hep B/C viral load. - Generalized malaise, migraines, fatigue. PLAN: - Plan for egd/colonoscopy in am - Obtain consents - Clear liquids - NPO after MN - Golytely prep - Protonix 40mg po BID - AFP level - MAGDALENO, ASMA, AMA - Ceruloplasmin, Alpha 1 Antitrypsin - Ferritin, Iron saturation - Hep B Surface ag, surface ab, Core ab, DNA PCR - Hep C Viral load, genotype - CBC, CMP in am - Supportive care - Notify GI if unable to tolerate bowel prep - Further recommendations to follow based on results of above - Pt seen and examined by Dr. Diaz and myself and this note is written on his behalf (Kateryna Vazquez) Physician Comments Seen and examined with [employer]TERN[employer]< egd/colonoscopy planned. Previous colonoscopy fro rectal bleeding some years ago -ve for colitis. (Aleshia Diaz MD) Kateryna Vazquez Apr 05, 2017 10:58 Aleshia Diaz MD Apr 05, 2017 12:55
[2017-04-05 12:00] VITALS: BP 120/66; PULSE 66; RESP 17; TEMP 97; O2SAT 98
[2017-04-05 16:00] VITALS: BP 111/52; PULSE 77; RESP 16; TEMP 98.3; O2SAT 97
[2017-04-05] MEDS ORDERED: PEG (High)/E-LYTE SOLN 4000 ML BTL PO ONE (16:00)
[2017-04-05 16:45] LABS: TRANSFERRIN IRON PROFILE 527 MG/DL (200-360)
[2017-04-05 16:48] LABS: FERRITIN 15 NG/ML (26-388)
[2017-04-05 20:12] VITALS: BP 124/62; PULSE 79; RESP 20; TEMP 97.5; O2SAT 98
[2017-04-06 00:02] VITALS: BP 118/61; PULSE 59; RESP 20; TEMP 98.1; O2SAT 98
[2017-04-06] MEDS: DEXT 5%-NACL 0.9% 1000 ML INJ 1,000 ML IV SCH ×2 (05:00→10:00)
[2017-04-06 08:00] VITALS: BP 118/67; PULSE 67; RESP 17; TEMP 96.3; O2SAT 100
[2017-04-06] MEDS: SODIUM CHLORIDE 0.9% FLUSH 10 ML FLUSH IV FLUSH PRN ×2 (08:00→11:45)
[2017-04-06 10:07] LABS: BASOPHIL % 0.9 % (0.0-2.0); EOSINOPHIL # 0.1 TH/MM3 (0-0.4); EOSINOPHIL % 1.3 % (0.0-4.0); HEMATOCRIT 39.8 % (39.0-51.0); HEMO FLAGS DIFF FINAL; LYMPH % 29.6 % (9.0-44.0); LYMPHOCYTE # 1.6 TH/MM3 (1.0-4.8); MEAN CELL VOLUME 89.2 FL (80.0-100.0); MEAN CORPUSCULAR HGB CONC 33.6 % (32.0-36.0); MONO % 11.2 % (0.0-8.0); PLATELET COUNT 337 TH/MM3 (150-450); RED BLOOD COUNT 4.46 MIL/MM3 (4.50-5.90); RED CELL DISTRIBUTION WIDTH 13.6 % (11.6-17.2); WHITE BLOOD COUNT 5.2 TH/MM3 (4.0-11.0)
[2017-04-06] MEDS ORDERED: PROPOFOL 200 MG/20 ML AMP ONE (10:21)
[2017-04-06 10:41] LABS: ALT (GPT) 132 U/L (12-78); ANION GAP 4 MEQ/L (5-15); AST (GOT) 45 U/L (15-37); BICARBONATE 27.7 MEQ/L (21.0-32.0); BLOOD UREA NITROGEN 7 MG/DL (7-18); CHLORIDE 108 MEQ/L (98-107); GLOMERULAR FILTRATION RATE 67 ML/MIN (>89); POTASSIUM 4.1 MEQ/L (3.5-5.1); SODIUM (NA) 140 MEQ/L (136-145)
[2017-04-06 10:44] LABS: ALKALINE PHOSPHATASE 55 U/L (45-117); TOTAL BILIRUBIN ADULT 0.9 MG/DL (0.2-1.0)
[2017-04-06 11:34] LABS: HEPATITIS B SURFACE ANTIBODY 0 mIU/mL
[2017-04-06 12:00] VITALS: BP 127/84; PULSE 66; RESP 17; TEMP 96.8; O2SAT 100
[2017-04-06] MEDS ORDERED: PROT40TA PO (12:12)
--- NOTE | 2017-04-06 12:12 | HHI.PR ---
Subjective Remarks resting comfortably with no distress. no nausea or vomiting. abdominal pain is minimal. no other complaints. Objective Vitals Vital Signs Date Time Temp Pulse Resp B/P (MAP) Pulse Ox O2 Delivery O2 Flow Rate FiO2 04/06/17 10:50 67 18 127/69 (88) 99 04/06/17 10:35 65 18 126/70 (88) 98 04/06/17 10:35 65 126/70 (88) 98 04/06/17 10:30 60 16 103/64 (77) 97 04/06/17 10:27 85/50 (62) 95 04/06/17 10:20 93/52 (66) 97 04/06/17 10:20 97 Room Air 04/06/17 10:18 Nasal Cannula 04/06/17 10:14 Nasal Cannula 3 04/06/17 10:14 98.5 57 20 95/55 (68) 100 04/06/17 08:00 96.3 67 17 118/67 (84) 100 04/06/17 00:02 98.1 59 20 118/61 (80) 98 04/05/17 20:12 97.5 79 20 124/62 (82) 98 04/05/17 16:00 98.3 77 16 111/52 (71) 97 I/O 04/05/17 04/05/17 04/05/17 04/06/17 04/06/17 04/06/17 07:00 15:00 23:00 07:00 15:00 23:00 Intake Total 1000 ml 1780 ml 3519 ml Balance 1000 ml 1780 ml 3519 ml Intake Oral 780 ml 220 ml IV Total 1000 ml 1000 ml 3299 ml # Voids 4 5 6 # Bowel Movements 3 8 Result Diagram: 04/06/1790404/06/17904 Imaging Last Impressions Abdomen/Pelvis CT 04/04/17 1352 Signed Impressions: Service Date/Time: Tuesday, April 04, 2017 15:47 - CONCLUSION: 1. Multiple loops of minimally distended fluid filled jejunum in the left upper quadrant with mild fecalization and apparent focal transition points in the left upper quadrant proximally and left midabdomen distally at the level of the proximal ileum. Although not completely decompressed, distal ileal loops are much smaller in caliber and not fluid-filled. Findings are most compatible with developing partial small bowel obstruction secondary to adhesions or inflammatory bowel disease in the appropriate clinical setting. Less likely differential considerations include developing gastroenteritis. Lorenzo Pisano MD Objective Remarks GENERAL: This is a well-nourished, well-developed patient, in no apparent distress. CARDIOVASCULAR: Regular rate and regular rhythm without murmurs, gallops, or rubs. RESPIRATORY: Clear to auscultation. Breath sounds equal bilaterally. No wheezes , rales, or rhonchi. GASTROINTESTINAL: Abdomen soft, non-tender, nondistended. Normal, active bowel sounds MUSCULOSKELETAL: Extremities without clubbing, cyanosis, or edema. NEURO: Alert & Oriented x4 to person, place, time, situation. Moves all ext x4 Medications and IVs Current Medications Ondansetron HCl (Zofran Inj) 4 mg ONCE ONCE IVP Last administered on 15:54; Start 04/04/17 at 14:00; Stop 04/04/17 at 14:01; Status DC Pantoprazole Sodium (Protonix Inj) 40 mg ONCE ONCE IVP Last administered on 15:54; Start 04/04/17 at 14:00; Stop 04/04/17 at 14:01; Status DC Sodium Chloride 1,000 ml @ 1,000 mls/hr Q1H IV Last administered on 04/04/17 15:53; Start 04/04/17 at 13:52; Stop 04/04/17 at 14:51; Status DC Sodium Chloride (NS Flush) 2 ml UNSCH PRN IV FLUSH FLUSH AFTER USING IV ACCESS Last administered on 04/06/17 11:45; Start 04/04/17 at 14:00 Al Hydrox/Mg Hydrox/Simethicone (Mag-Al Plus Susp Liq) 30 ml ONCE ONCE PO Last administered on 04/04/17 15:54; Start 04/04/17 at 14:00; Stop 04/04/17 at 14:01; Status DC Lidocaine HCl (Xylocaine 2% Viscous) 15 ml ONCE ONCE PO Last administered on 04/04/17 15:55; Start 04/04/17 at 14:00; Stop 04/04/17 at 14:01; Status DC Iohexol (Omnipaque 350 Inj) 82 ml STK-MED ONCE IVCONTRAST Last administered on 04/04/17 11:49; Start 04/04/17 at 11:49; Stop 04/04/17 at 16:06; Status DC Dextrose/Sodium Chloride 1,000 ml @ 100 mls/hr Q10H IV Last administered on 05:00; Start 04/04/17 at 18:00 Ondansetron HCl (Zofran Inj) 4 mg Q8HR PRN IV PUSH NAUSEA; Start 04/04/17 at 18 :00 Polyethylene Glycol/ Electrolytes (Colyte Liq) 4,000 ml ONCE ONCE PO Last administered on 04/05/17 15:06; Start 04/05/17 at 16:00; Stop 04/05/17 at 16 :01; Status DC Propofol (Diprivan 200 Mg/20 ml Inj) 400 mg STK-MED ONCE .ROUTE ; Start at 10:21; Stop 04/06/17 at 10:22; Status DC A/P Assessment and Plan A/P - possible early small bowel obstruction with reported rectal bleed s/p panendoscopy- -elevated LFT's due to hepatitis B and C- will monitor -DVT prophylaxis with SCD's- Discharge Planning when cleared by GI. see med list. f/u; pcp and GI upon discharge. d/w the patient. Billie Hanna MD Apr 06, 2017 12:12
--- NOTE | 2017-04-06 12:16 | HHI.DS ---
Discharge Summary Admission Date Apr 04, 2017 at 17:31 Discharge Date: Apr 06, 2017 Admitting Diagnosis Partial Small Bowel Obstruction (1) Small bowel obstruction, partial ICD Code: K56.600 - Partial intestinal obstruction, unspecified as to cause Diagnosis: Principal Status: Acute Procedures panendoscopy Brief History - From Admission patient is a 42 y/o male with history of hepatitis B and C who presented to ER with abdominal pain. he was seen in ER a few days ago for the headache and was discharged home with Naproxen. he says that he's had abdominal pain, nausea, vomiting for the past two weeks. pain is more or less generalized. he says that he's had on and off rectal bleed. he had some fever and chills at home. there's no report of recent weight change although he says that he's lost his appetite.he doesn't recall any similar pain in the past. CBC/BMP: 04/06/17 0905 04/06/17 0905 Significant Findings Laboratory Tests Test 04/04/17 14:20 04/04/17 15:00 04/05/17 06:00 04/05/17 15:30 Mean Platelet Volume 6.1 FL (7.0-11.0) 6.7 FL (7.0-11.0) Monocytes (%) (Auto) 12.8 % (0.0-8.0) 12.3 % (0.0-8.0) Activated Partial Thromboplast Time 21.5 SEC (24.3-30.1) Random Glucose 64 MG/DL (74-106) Aspartate Amino Transf (AST/SGOT) 54 U/L (15-37) Alanine Aminotransferase (ALT/SGPT) 131 U/L (12-78) Estimat Glomerular Filtration Rate 62 ML/MIN (>89) 69 ML/MIN (>89) Total Creatine Kinase 358 U/L (39-308) Troponin I LESS THAN 0.02 NG/ML Urine Turbidity CLOUDY (CLEAR) Urine WBC 8 /hpf (0-5) Red Blood Count 4.38 MIL/MM3 (4.50-5.90) Calcium Level 8.4 MG/DL (8.5-10.1) Total Iron Binding Capacity 738 MCG/DL (250-450) Percent Iron Saturation 17.3 % (20-50) Ferritin 15 NG/ML (26-388) Test 04/06/17 09:05 Red Blood Count 4.46 MIL/MM3 (4.50-5.90) Mean Platelet Volume 6.9 FL (7.0-11.0) Monocytes (%) (Auto) 11.2 % (0.0-8.0) Albumin 3.3 GM/DL (3.4-5.0) Calcium Level 8.2 MG/DL (8.5-10.1) Aspartate Amino Transf (AST/SGOT) 45 U/L (15-37) Alanine Aminotransferase (ALT/SGPT) 132 U/L (12-78) Chloride Level 108 MEQ/L (98-107) Anion Gap 4 MEQ/L (5-15) Estimat Glomerular Filtration Rate 67 ML/MIN (>89) PE at Discharge GENERAL: This is a well-nourished, well-developed patient, in no apparent distress. CARDIOVASCULAR: Regular rate and regular rhythm without murmurs, gallops, or rubs. RESPIRATORY: Clear to auscultation. Breath sounds equal bilaterally. No wheezes , rales, or rhonchi. GASTROINTESTINAL: Abdomen soft, non-tender, nondistended. Normal, active bowel sounds MUSCULOSKELETAL: Extremities without clubbing, cyanosis, or edema. NEURO: Alert & Oriented x4 to person, place, time, situation. Moves all ext x4 Hospital Course - possible early small bowel obstruction with reported rectal bleed s/p panendoscopy- -elevated LFT's due to hepatitis B and C- will monitor -DVT prophylaxis with SCD's- Pt Condition on Discharge: Good Discharge Disposition: Discharge Home Discharge Time: <= 30 minutes Discharge Instructions DIET: Follow Instructions for: Heart Healthy Diet Activities you can perform: Regular-No Restrictions Billie Hanna MD Apr 06, 2017 12:16
[2017-04-06 16:00] VITALS: BP 118/65; PULSE 73; RESP 16; TEMP 97.3; O2SAT 98
[2017-04-06 16:07] LABS: ANA SCREEN NEG (NEG)
[2017-04-08 09:52] LABS: HCV RNA PCR IU/ML 13100 IU/mL (0-14); HCV RNA PCR LOGIU/ML 4.12 (0-1.18)
[2017-04-08 11:53] LABS: HEP B DNA R1 LESS THAN 20 IU/mL (0-19); HEP B DNA R2 LESS THAN 1.30 (<1.30)
[2017-04-10 03:50] LABS: MITOCHONDRIAL ABS LESS THAN 20.0 U (<=20.0)
== END 2017-04-06 17:09 | disposition home or self-care (01) | DRG 389 ==
LOC: NEPC 11:48 → NEDA 17:05 → OBSVTOIN 17:31 → N07A 18:21
PROVIDERS: ADMIT Internal Medicine; ATTEND Internal Medicine
PROC: 0DB58ZX Excision of Esophagus, Via Natural or Artificial Opening Endoscopic, Diagnostic (ICD-10-PCS; principal; 2017-04-06 09:45)
PROC: 0DB68ZX Excision of Stomach, Via Natural or Artificial Opening Endoscopic, Diagnostic (ICD-10-PCS; 2017-04-06 09:45)
DX: K56.51 Intestinal adhesions [bands], with partial obstruction (principal); B19.10 Unspecified viral hepatitis B without hepatic coma; K74.60 Unspecified cirrhosis of liver; I10 Essential (primary) hypertension; B19.20 Unspecified viral hepatitis C without hepatic coma; K21.9 Gastro-esophageal reflux disease without esophagitis; K29.00 Acute gastritis without bleeding; K64.9 Unspecified hemorrhoids; E78.00 Pure hypercholesterolemia, unspecified; G43.909 Migraine, unspecified, not intractable, without status migrainosus; F19.10 Other psychoactive substance abuse, uncomplicated; F17.210 Nicotine dependence, cigarettes, uncomplicated; K29.70 Gastritis, unspecified, without bleeding; K20.9 Esophagitis, unspecified; B96.81 Helicobacter pylori [H. pylori] as the cause of diseases classified elsewhere
CPT/HCPCS: 74177; 80048; 80053; 81001; 82103; 82105; 82140; 82390; 82550; 82552; 82728; 83520; 83540; 83550; 83605; 83690; 84484; 85025; 85610; 85652; 85730; 86038; 86255; 86317; 86704; 87340; 87517; 87522; 87902; 88305; 88312; 93005; 96361; 96374; 96375; C9113; J2405; J7030; J7042; Q9967

== ENCOUNTER 2017-05-08 21:17 | Emergency (ER) | payer SELFPAY ==
[~2017-05-08] VITALS: Ht 182.9 cm; Wt 98.0 kg
[2017-05-08 21:17] VITALS: BP 140/63; PULSE 64; RESP 16; TEMP 98.6; O2SAT 98
[~2017-05-08 21:17] MED LIST changes: -NAPR500T PO; +PROT40TA PO
[2017-05-08] MEDS ORDERED: SODIUM CHLOR 0.9% 1000 ML INJ 1,000 ML IV SCH (23:36)
--- NOTE | 2017-05-08 23:44 | PD ---
HPI Chief Complaint: Abdominal Pain Time Seen by Provider: 23:29 Travel History International Travel<30 days: No Contact w/Intl Traveler<30days: No Traveled to known affect area: No History of Present Illness HPI Patient complaining of left lower quadrant abdominal pain ongoing intermittently over the past week. Pain radiates superiorly and into his suprapubic region. Patient states pain feels similar to previous bowel obstruction. Patient denies anything making it better or worse. Patient reports he continues to pass gas. Reports having associated nausea but denies any vomiting. Denies any blood in stool or dark stool. Patient states he is on antibiotics for H. pylori. Denies any fevers, chest pain, shortness of breath, or loss change in bladder. Patient states he was having 3 bowel movements per day, but has been constipated over the past couple of days. PFS Past Medical History Anxiety: Yes Cancer: No Cardiovascular Problems: Yes (MURMUR) High Cholesterol: Yes Diabetes: No Diminished Hearing: No Endocrine: No Hypertension: Yes Thyroid Disease: No Tetanus Vaccination: Unknown Family History Family Myocardial Infarction: Yes Social History Alcohol Use: No Tobacco Use: Yes (1/2 PPD) Substance Use: No Allergies-Medications (Allergen,Severity, Reaction): Coded Allergies: No Known Allergies (Unverified , 03/31/17) Reported Meds & Prescriptions Reported Meds & Active Scripts Active Protonix (Pantoprazole Sodium) 40 Mg Tab 40 Mg PO DAILY Review of Systems Except as stated in HPI: all other systems reviewed are Neg Physical Exam Narrative GENERAL: Well-developed, overly nourished, in no acute distress, and non-ill appearing. SKIN: Focused skin assessment warm and dry. HEAD: Atraumatic. Normocephalic. EYES: Pupils equal and round. EOMI. No scleral icterus. No injection or drainage. ENT: No nasal bleeding or discharge. Mucous membranes pink and moist. NECK: Trachea midline. Supple. No nuclear rigidity. CARDIOVASCULAR: Regular rate and rhythm. No murmur appreciated. RESPIRATORY: No accessory muscle use. No respiratory distress. Clear to auscultation. Breath sounds equal bilaterally. GASTROINTESTINAL: Abdomen soft, nondistended, and no guarding. Hepatic and splenic margins not palpable. Normal bowel sounds 4. No pulsatile mass. Patient reports tenderness to palpation left lower quadrant. MUSCULOSKELETAL: No obvious deformities. No clubbing. No cyanosis. No edema. Full range of motion. NEUROLOGICAL: Awake and alert. No obvious cranial nerve deficits. Motor grossly within normal limits. Normal speech. PSYCHIATRIC: Appropriate mood and affect; insight and judgment normal. Data Data Last Documented VS Vital Signs Date Time Temp Pulse Resp B/P (MAP) Pulse Ox O2 Delivery O2 Flow Rate FiO2 05/09/17 02:32 05/09/17 00:01 98 Room Air 05/08/17 21:17 98.6 64 16 Orders Orders Complete Blood Count With Diff (05/08/17 23:36) Comprehensive Metabolic Panel (05/08/17 23:36) Lipase (05/08/17 23:36) Prothrombin Time / Inr (Pt) (05/08/17:36) Act Partial Throm Time (Ptt) (05/08/17 23:36) Urinalysis - C+S If Indicated (05/08/17 23:36) Ct Abd/Pel W Iv Contrast(Rout) (05/08/17 23:36) Iv Access Insert/Monitor (05/08/17 23:36) Ecg Monitoring (05/08/17 23:36) Oximetry (05/08/17 23:36) Ondansetron Inj (Zofran Inj) (05/08/17 23:45) Sodium Chlor 0.9% 1000 Ml Inj (Ns 1000 M (05/08/17 23:36) Sodium Chloride 0.9% Flush (Ns Flush) (05/08/17 23:45) Oral Contrast - Adult (05/08/17 23:57) Diatrizoate Liq ( Gastroview Liq) (05/09/17 00:02) Iohexol 350 Inj (Omnipaque 350 Inj) (05/09/17 02:06) Ed Discharge Order (05/09/17 02:30) Labs Laboratory Tests Test 05/08/17 23:50 White Blood Count 5.9 TH/MM3 Red Blood Count 4.70 MIL/MM3 Hemoglobin 13.4 GM/DL Hematocrit 40.9 % Mean Corpuscular Volume 87.0 FL Mean Corpuscular Hemoglobin 28.6 PG Mean Corpuscular Hemoglobin Concent 32.8 % Red Cell Distribution Width 13.8 % Platelet Count 357 TH/MM3 Mean Platelet Volume 6.2 FL Neutrophils (%) (Auto) 46.3 % Lymphocytes (%) (Auto) 36.2 % Monocytes (%) (Auto) 12.7 % Eosinophils (%) (Auto) 2.5 % Basophils (%) (Auto) 2.3 % Neutrophils # (Auto) 2.7 TH/MM3 Lymphocytes # (Auto) 2.1 TH/MM3 Monocytes # (Auto) 0.8 TH/MM3 Eosinophils # (Auto) 0.1 TH/MM3 Basophils # (Auto) 0.1 TH/MM3 CBC Comment DIFF FINAL Differential Comment Prothrombin Time 11.4 SEC Prothromb Time International Ratio 1.0 RATIO Activated Partial Thromboplast Time 22.3 SEC Urine Color YELLOW Urine Turbidity CLEAR Urine pH 6.0 Urine Specific [place] 1.031 Urine Protein TRACE mg/dL Urine Glucose (UA) NEG mg/dL Urine Ketones NEG mg/dL Urine Occult Blood NEG Urine Nitrite NEG Urine Bilirubin NEG Urine Urobilinogen 2.0 MG/DL Urine Leukocyte Esterase NEG Urine RBC 1 /hpf Urine WBC 1 /hpf Urine Mucus FEW /lpf Microscopic Urinalysis Comment CULT NOT INDICATED Blood Urea Nitrogen 8 MG/DL Creatinine 1.07 MG/DL Random Glucose 97 MG/DL Total Protein 7.5 GM/DL Albumin 3.4 GM/DL Calcium Level 8.3 MG/DL Alkaline Phosphatase 70 U/L Aspartate Amino Transf (AST/SGOT) 53 U/L Alanine Aminotransferase (ALT/SGPT) 157 U/L Total Bilirubin 0.4 MG/DL Sodium Level 140 MEQ/L Potassium Level 4.0 MEQ/L Chloride Level 106 MEQ/L Carbon Dioxide Level 28.8 MEQ/L Anion Gap 5 MEQ/L Estimat Glomerular Filtration Rate 76 ML/MIN Lipase 186 U/L MDM Medical Decision Making Medical Screen Exam Complete: Yes Emergency Medical Condition: Yes Differential Diagnosis Diverticulitis, bowel obstruction, ileus, UTI, metabolic disturbance, constipation, other Narrative Course The patient presented with nonspecific abdominal pain. There was no significant history of vomiting or diarrhea and no fever. The patient appeared comfortable, well hydrated and the abdominal exam was mildly tender without guarding or rebound to me. Laboratory and radiologic/CT evaluation revealed no significant abnormalities. There was no evidence of an acute, surgical abdomen at this time. There was no clinical evidence to support appendicitis, bowel obstruction , cholecystitis/cholelithiasis, pancreatitis, perforation of gastric ulcer, colitis, diverticulitis, bacterial peritonitis, obstruction, volvulus, hernial incarceration or strangulation at this time. There was no evidence to support vascular pathology such as AAA, mesenteric ischemia. There was also no clinical evidence by history, exam or risk factors to suggest atypical presentation of cardiac disease such as ACS, AMI or atypical angina. No evidence to suggest genitourinary etiology as well. Clinical picture was discussed with the patient , as well as plan of care. The patient was instructed to follow up with their physician. Abdominal pain warnings were discussed with the patient. The patient is to return if worsens, pain worsens or changes, develop fever, inability to tolerate fluids with or without vomiting, unable to establish follow up or as needed. The patient agrees with plan. Patient in no obvious distress upon re-evaluation. All pertinent laboratory/ Radiology result(s) discussed with patient. Any questions/concerns in reference to patient diagnosis/condition discussed and clarified prior to patient's discharge. Reinforced sheer importance of close follow up with patient 's primary physician or primary care clinic. Instructed patient to return to ED immediately, if symptoms return/worsen. Patient showed understanding of above instructions. Further instructions and recommendations were detailed in discharge paperwork. Patient ambulated without difficulty out of ED at discharge. Diagnosis Primary Impression: Abdominal pain Qualified Codes: R10.32 - Left lower quadrant pain Referrals: [facility] Patient Instructions: Abdominal Pain (ED), General Instructions Additional Instructions: Follow-up with your primary care physician this week for reevaluation. Follow up with GI as scheduled. Return to the emergency department if symptoms get worse. Disposition: 01 DISCHARGE HOME Condition: Stable Glen Tolbert May 08, 2017 23:43
[2017-05-08] MEDS ORDERED: ONDANSETRON HCL 4 MG/2 ML VIAL IVP ONE (23:45)
[2017-05-08] MEDS ORDERED: SODIUM CHLORIDE 0.9% FLUSH 10 ML FLUSH IV FLUSH PRN (23:45)
[2017-05-09 00:01] VITALS: O2SAT 98
[2017-05-09] MEDS ORDERED: DIATRIZOATE MEGLUM/DIATRIZOATE SOD 9 ML CUP ONE (00:02)
[2017-05-09 00:06] LABS: AUTOMATED NEUTROPHIL # 2.7 TH/MM3 (1.8-7.7); BASOPHIL # 0.1 TH/MM3 (0-0.2); BASOPHIL % 2.3 % (0.0-2.0); BLOOD, URINE NEG (NEG); COMMENT (UR) CULT NOT INDICATED; CULTURE IF INDICATED CULT NOT INDICATED; EOSINOPHIL # 0.1 TH/MM3 (0-0.4); EOSINOPHIL % 2.5 % (0.0-4.0); GLUCOSE,URINE NEG (NEG); HEMATOCRIT 40.9 % (39.0-51.0); HEMO FLAGS DIFF FINAL; KETONE, URINE NEG (NEG); LYMPH % 36.2 % (9.0-44.0); LYMPHOCYTE # 2.1 TH/MM3 (1.0-4.8); MEAN CORPUSCULAR HEMOGLOBIN 28.6 PG (27.0-34.0); MEAN CORPUSCULAR HGB CONC 32.8 % (32.0-36.0); MONO % 12.7 % (0.0-8.0); MUCUS URINE FEW /lpf (OCC); NEUT % 46.3 % (16.0-70.0); NITRITE,URINE NEG (NEG); PLATELET COUNT 357 TH/MM3 (150-450); RED CELL DISTRIBUTION WIDTH 13.8 % (11.6-17.2); URINE COLOR YELLOW (YELLW/STRAW); WHITE BLOOD COUNT 5.9 TH/MM3 (4.0-11.0)
[2017-05-09 00:17] LABS: APTT (PATIENT) 22.3 SEC (24.3-30.1); PROTHROMBIN TIME - PATIENT 11.4 SEC (9.8-11.6)
[2017-05-09 00:19] LABS: ALT (GPT) 157 U/L (12-78); ANION GAP 5 MEQ/L (5-15); AST (GOT) 53 U/L (15-37); BICARBONATE 28.8 MEQ/L (21.0-32.0); BLOOD UREA NITROGEN 8 MG/DL (7-18); CHLORIDE 106 MEQ/L (98-107); GLOMERULAR FILTRATION RATE 76 ML/MIN (>89); SODIUM (NA) 140 MEQ/L (136-145)
[2017-05-09 00:21] LABS: ALKALINE PHOSPHATASE 70 U/L (45-117); TOTAL BILIRUBIN ADULT 0.4 MG/DL (0.2-1.0)
[2017-05-09] MEDS ORDERED: IOHEXOL 350 MG/ML 10 ML VIAL (for RAD DIAG) IVCONTRAST ONE (02:06)
--- NOTE | 2017-05-09 02:22 | RADRPT ---
EXAM DATE/TIME: 05/09/2017 02:04 [facility] COMPARISON: CT ABDOMEN & PELVIS W CONTRAST, April 04, 2017, 15:47. INDICATIONS : Left lower quadrant pain x1 week. IV CONTRAST: 90 cc Omnipaque 350 (iohexol) IV ORAL CONTRAST: Prescribed oral contrast ingested. RADIATION DOSE: 9.90 CTDIvol (mGy) MEDICAL HISTORY : Hypertension. SURGICAL HISTORY : None. ENCOUNTER: Initial ACUITY: 1 week PAIN SCALE: 8/10 LOCATION: Left lower quadrant TECHNIQUE: Volumetric scanning of the abdomen and pelvis was performed. Using automated exposure control and ad justment of the mA and/or kV according to patient size, radiation dose was kept as low as reasonably achievable to obtain optimal diagnostic quality images. DICOM format image data is available electro nically for review and comparison. FINDINGS: LOWER LUNGS: The visualized lower lungs are clear. LIVER: Homogeneous density without lesion. There is no dilation of the biliary tree. No calcified gallston es. SPLEEN: Normal size without lesion. PANCREAS: Within normal limits. KIDNEYS: Normal in size and shape. There is no mass, stone or hydronephrosis. ADRENAL GLANDS: Within normal limits. VASCULAR: There is no aortic aneurysm. BOWEL/MESENTERY: The stomach, small bowel, and colon demonstrate no acute abnormality. There is no free intraperitone al air or fluid. ABDOMINAL WALL: Within normal limits. RETROPERITONEUM: There is no lymphadenopathy. BLADDER: No wall thickening or mass. REPRODUCTIVE: Within normal limits. INGUINAL: There is no lymphadenopathy or hernia. MUSCULOSKELETAL: Within normal limits for patient age. CONCLUSION: Normal examination. The small bowel gas pattern is entirely normal on this exam. I don't see any jack dence of obstruction in fact the oral contrast extends all the way into the cecum. Chris Givens MD on May 09, 2017 at 2:19 Board Certified Radiologist. This report was verified electronically.
== END 2017-05-09 02:46 | disposition home or self-care (01) ==
LOC: NEPD 21:17
DX: R10.32 Left lower quadrant pain (principal); R11.0 Nausea; K59.00 Constipation, unspecified; I10 Essential (primary) hypertension; E78.00 Pure hypercholesterolemia, unspecified; F17.200 Nicotine dependence, unspecified, uncomplicated; Z86.59 Personal history of other mental and behavioral disorders; Z86.79 Personal history of other diseases of the circulatory system
CPT/HCPCS: 74177; 80053; 81001; 83690; 85025; 85610; 85730; 96361; 96374; 99285; J2405; J7030; Q9963; Q9967

== ENCOUNTER 2017-10-02 17:15 | Emergency (ER) | payer BC ==
[~2017-10-02] VITALS: Ht 182.9 cm; Wt 95.5 kg
[2017-10-02 17:24] VITALS: BP 120/72; PULSE 81; RESP 18; TEMP 98.3; O2SAT 99
[2017-10-02] MEDS ORDERED: SODIUM CHLOR 0.9% 1000 ML INJ 1,000 ML IV SCH (18:49)
--- NOTE | 2017-10-02 18:58 | PD ---
HPI Chief Complaint: Abdominal Pain Time Seen by Provider: 18:21 Travel History International Travel<30 days: No Contact w/Intl Traveler<30days: No Traveled to known affect area: No History of Present Illness HPI The patient is a 42-year-old male who presents to the emergency department for epigastric abdominal pain and rectal bleeding. The patient notes a 2-3 day history of epigastric abdominal pain that occasionally radiates to the right flank. The patient then developed bloody stools, occasionally bright red blood and occasionally dark red blood. The patient does have a history of previous rectal bleeding, states he underwent a colonoscopy which revealed internal hemorrhoids which he had ligated. The patient denies any known history of gastritis or peptic ulcer disease. He does take BC powder occasionally for pain, denies any daily alcohol consumption. He denies any history of pancreatitis or biliary colic. He denies any previous abdominal surgeries. Symptoms are moderate. There are no current alleviating or exacerbating factors. The patient does not have a local primary physician. PFSH Past Medical History Anxiety: Yes Cancer: No Cardiovascular Problems: Yes (MURMUR) High Cholesterol: Yes Diabetes: No Diminished Hearing: No Endocrine: No Hypertension: Yes Thyroid Disease: No Past Surgical History Narrative Surgical Left elbow surgery Family History Family Myocardial Infarction: Yes Social History Alcohol Use: No Tobacco Use: Yes (1/2 PPD) Substance Use: No Allergies-Medications (Allergen,Severity, Reaction): Coded Allergies: No Known Allergies (Unverified , 03/31/17) Reported Meds & Prescriptions Reported Meds & Active Scripts Active Review of Systems Except as stated in HPI: all other systems reviewed are Neg General / Constitutional: No: Fever Cardiovascular: No: Chest Pain or Discomfort Respiratory: No: Shortness of Breath Gastrointestinal: Positive: Nausea, Vomiting, Abdominal Pain, Hematochezia, No : Diarrhea Musculoskeletal: No: Weakness Neurologic: No: Dizziness Physical Exam Narrative GENERAL: Awake, alert, pleasant 42-year-old male who appears his stated age and is in no acute respiratory distress. SKIN: Focused skin assessment warm/dry. HEAD: Atraumatic. Normocephalic. EYES: Pupils equal and round. No scleral icterus. No injection or drainage. ENT: No nasal bleeding or discharge. Mucous membranes pink and moist. NECK: Trachea midline. No JVD. CARDIOVASCULAR: Regular rate and rhythm. No murmur appreciated. RESPIRATORY: No accessory muscle use. Clear to auscultation. Breath sounds equal bilaterally. GASTROINTESTINAL: Abdomen soft, mild epigastric tenderness. No guarding or rigidity. Rectal: No gross blood. Slightly guaiac positive. MUSCULOSKELETAL: No obvious deformities. No clubbing. No cyanosis. No edema. NEUROLOGICAL: Awake and alert. No obvious cranial nerve deficits. Motor grossly within normal limits. Normal speech. PSYCHIATRIC: Appropriate mood and affect; insight and judgment normal. Data Data Last Documented VS Vital Signs Date Time Temp Pulse Resp B/P (MAP) Pulse Ox O2 Delivery O2 Flow Rate FiO2 10/02/17 17:24 98.3 81 18 120/72 (88) 99 Orders Orders Complete Blood Count With Diff (10/02/17 18:49) Comprehensive Metabolic Panel (10/02/17 18:49) Lipase (10/02/17 18:49) Prothrombin Time / Inr (Pt) (10/02/17 18:49) Act Partial Throm Time (Ptt) (10/02/17 18:49) Ct Abd/Pel W Iv Contrast(Rout) (10/02/17 18:49) Iv Access Insert/Monitor (10/02/17 18:49) Ecg Monitoring (10/02/17 18:49) Oximetry (10/02/17 18:49) Morphine Inj (Morphine Inj) (10/02/17 19:00) Ondansetron Inj (Zofran Inj) (10/02/17 19:00) Pantoprazole Inj (Protonix Inj) (10/02/17 19:00) Sodium Chlor 0.9% 1000 Ml Inj (Ns 1000 M (10/02/17 18:49) Sodium Chloride 0.9% Flush (Ns Flush) (10/02/17 19:00) Type And Screen (10/02/17 18:49) Iohexol 350 Inj (Omnipaque 350 Inj) (10/02/17 19:26) Ed Discharge Order (10/02/17 20:25) Labs Laboratory Tests Test 10/02/17 18:54 White Blood Count 9.1 TH/MM3 Red Blood Count 4.93 MIL/MM3 Hemoglobin 14.1 GM/DL Hematocrit 42.0 % Mean Corpuscular Volume 85.2 FL Mean Corpuscular Hemoglobin 28.5 PG Mean Corpuscular Hemoglobin Concent 33.5 % Red Cell Distribution Width 13.9 % Platelet Count 293 TH/MM3 Mean Platelet Volume 6.5 FL Neutrophils (%) (Auto) 67.1 % Lymphocytes (%) (Auto) 18.1 % Monocytes (%) (Auto) 13.2 % Eosinophils (%) (Auto) 1.1 % Basophils (%) (Auto) 0.5 % Neutrophils # (Auto) 6.1 TH/MM3 Lymphocytes # (Auto) 1.6 TH/MM3 Monocytes # (Auto) 1.2 TH/MM3 Eosinophils # (Auto) 0.1 TH/MM3 Basophils # (Auto) 0.0 TH/MM3 CBC Comment DIFF FINAL Differential Comment Prothrombin Time 10.6 SEC Prothromb Time International Ratio 1.0 RATIO Activated Partial Thromboplast Time 23.1 SEC Blood Urea Nitrogen 12 MG/DL Creatinine 1.16 MG/DL Random Glucose 82 MG/DL Total Protein 7.6 GM/DL Albumin 3.7 GM/DL Calcium Level 8.3 MG/DL Alkaline Phosphatase 79 U/L Aspartate Amino Transf (AST/SGOT) 46 U/L Alanine Aminotransferase (ALT/SGPT) 138 U/L Total Bilirubin 0.6 MG/DL Sodium Level 138 MEQ/L Potassium Level 3.6 MEQ/L Chloride Level 104 MEQ/L Carbon Dioxide Level 29.2 MEQ/L Anion Gap 5 MEQ/L Estimat Glomerular Filtration Rate 69 ML/MIN Lipase 142 U/L MDM Medical Decision Making Medical Screen Exam Complete: Yes Emergency Medical Condition: Yes Medical Record Reviewed: Yes Interpretation(s) Last Impressions Abdomen/Pelvis CT 10/02/17 9419 Signed Impressions: Service Date/Time: Monday, October 02, 2017 19:19 - CONCLUSION: No acute abnormality demonstrated. Zeke German MD Laboratory Tests Test 10/02/17 18:54 White Blood Count 9.1 TH/MM3 Red Blood Count 4.93 MIL/MM3 Hemoglobin 14.1 GM/DL Hematocrit 42.0 % Mean Corpuscular Volume 85.2 FL Mean Corpuscular Hemoglobin 28.5 PG Mean Corpuscular Hemoglobin Concent 33.5 % Red Cell Distribution Width 13.9 % Platelet Count 293 TH/MM3 Mean Platelet Volume 6.5 FL Neutrophils (%) (Auto) 67.1 % Lymphocytes (%) (Auto) 18.1 % Monocytes (%) (Auto) 13.2 % Eosinophils (%) (Auto) 1.1 % Basophils (%) (Auto) 0.5 % Neutrophils # (Auto) 6.1 TH/MM3 Lymphocytes # (Auto) 1.6 TH/MM3 Monocytes # (Auto) 1.2 TH/MM3 Eosinophils # (Auto) 0.1 TH/MM3 Basophils # (Auto) 0.0 TH/MM3 CBC Comment DIFF FINAL Differential Comment Prothrombin Time 10.6 SEC Prothromb Time International Ratio 1.0 RATIO Activated Partial Thromboplast Time 23.1 SEC Blood Urea Nitrogen 12 MG/DL Creatinine 1.16 MG/DL Random Glucose 82 MG/DL Total Protein 7.6 GM/DL Albumin 3.7 GM/DL Calcium Level 8.3 MG/DL Alkaline Phosphatase 79 U/L Aspartate Amino Transf (AST/SGOT) 46 U/L Alanine Aminotransferase (ALT/SGPT) 138 U/L Total Bilirubin 0.6 MG/DL Sodium Level 138 MEQ/L Potassium Level 3.6 MEQ/L Chloride Level 104 MEQ/L Carbon Dioxide Level 29.2 MEQ/L Anion Gap 5 MEQ/L Estimat Glomerular Filtration Rate 69 ML/MIN Lipase 142 U/L Differential Diagnosis Differential diagnosis includes gastritis, peptic ulcer disease, upper GI bleed , diverticulosis, internal hemorrhoids, anal fissure, AV malformation, angiodysplasia, pancreatitis, biliary colic. Narrative Course IV was established, labs are drawn and sent, and the patient was placed on cardiac telemetry monitoring and continuous pulse oximetry monitoring. The patient was administered Protonix, Zofran, and placed on IV fluids. Patient wanted no narcotic medications administered. CT of the abdomen and pelvis with IV contrast was obtained. CT of the abdomen and pelvis is unremarkable. Hemoglobin is normal, greater than 14. BUN is normal. Patient does have epigastric pain and GI bleed with bright red blood and dark red blood, possibly could be brisk upper GI bleed, however, BUN is normal. Patient could also have diverticulosis, most likely would be self resolving GI bleed. The patient did have an endoscopy and colonoscopy performed [place] [address] Diaz. The patient's vitals are stable, heart rate is in the 60s, he will be placed on a proton pump inhibitor. He is advised to stop taking BC powder, up to 2 g of Tylenol per day only for pain. He is advised to follow-up with GI if symptoms worsen or progress. He is also advised to return if he has any presyncopal symptoms or progressing symptoms. Patient agrees and understands. He was provided a copy of his CT results and lab results at discharge. [facility] Point of Care Internal Pos. & Neg. Controls: Passed Fecal Specimen Occult Blood: Positive Diagnosis Primary Impression: GI bleed Qualified Codes: K92.2 - Gastrointestinal hemorrhage, unspecified Additional Impression: Epigastric abdominal pain Patient Instructions: General Instructions Additional Instructions: Stop using BC powder. Tylenol as needed for pain. Prevacid as directed. Follow-up with gastroenterology. Return if symptoms worsen or progress. Med/Other Pt SpecificInfo: Prescription(s) given, Med Stopped (Stop using BC powder) Scripts Lansoprazole (Prevacid) 30 Mg Capdr 30 MG PO HS for 30 Days, CAP 0 Refills Prov: Marcello Lake MD 10/02/17 Disposition: 01 DISCHARGE HOME Condition: Stable Marcello Lake MD Oct 02, 2017 18:58
[2017-10-02] MEDS ORDERED: MORPHINE SULFATE 4 MG/ML INJ IV PUSH ONE (19:00)
[2017-10-02] MEDS ORDERED: PANTOPRAZOLE SODIUM 40 MG VIAL IVP ONE (19:00)
[2017-10-02] MEDS ORDERED: SODIUM CHLORIDE 0.9% FLUSH 10 ML FLUSH IV FLUSH PRN (19:00)
[2017-10-02] MEDS ORDERED: ONDANSETRON HCL 4 MG/2 ML VIAL IVP ONE (19:00)
[2017-10-02 19:10] LABS: AUTOMATED NEUTROPHIL # 6.1 TH/MM3 (1.8-7.7); BASOPHIL % 0.5 % (0.0-2.0); EOSINOPHIL # 0.1 TH/MM3 (0-0.4); EOSINOPHIL % 1.1 % (0.0-4.0); HEMOGLOBIN 14.1 GM/DL (13.0-17.0); LYMPH % 18.1 % (9.0-44.0); LYMPHOCYTE # 1.6 TH/MM3 (1.0-4.8); MEAN CELL VOLUME 85.2 FL (80.0-100.0); MEAN CORPUSCULAR HEMOGLOBIN 28.5 PG (27.0-34.0); MEAN CORPUSCULAR HGB CONC 33.5 % (32.0-36.0); MEAN PLATELET VOLUME 6.5 FL (7.0-11.0); MONO % 13.2 % (0.0-8.0); MONOCYTE # 1.2 TH/MM3 (0-0.9); NEUT % 67.1 % (16.0-70.0); PLATELET COUNT 293 TH/MM3 (150-450); RED BLOOD COUNT 4.93 MIL/MM3 (4.50-5.90); RED CELL DISTRIBUTION WIDTH 13.9 % (11.6-17.2); WHITE BLOOD COUNT 9.1 TH/MM3 (4.0-11.0)
[2017-10-02 19:25] LABS: PROTHROMBIN TIME - PATIENT 10.6 SEC (9.8-11.6)
[2017-10-02] MEDS ORDERED: IOHEXOL 350 MG/ML 10 ML VIAL (for RAD DIAG) IVCONTRAST ONE (19:26)
[2017-10-02 19:31] LABS: ALBUMIN 3.7 GM/DL (3.4-5.0); ALT (GPT) 138 U/L (12-78); AST (GOT) 46 U/L (15-37); BICARBONATE 29.2 MEQ/L (21.0-32.0); BLOOD UREA NITROGEN 12 MG/DL (7-18); CALCIUM 8.3 MG/DL (8.5-10.1); CHLORIDE 104 MEQ/L (98-107); CREATININE 1.16 MG/DL (0.60-1.30); GLOMERULAR FILTRATION RATE 69 ML/MIN (>89); GLUCOSE,RANDOM 82 MG/DL (74-106); SODIUM (NA) 138 MEQ/L (136-145)
[2017-10-02 19:34] LABS: ALKALINE PHOSPHATASE 79 U/L (45-117); TOTAL BILIRUBIN ADULT 0.6 MG/DL (0.2-1.0); TOTAL PROTEIN 7.6 GM/DL (6.4-8.2)
--- NOTE | 2017-10-02 19:36 | RADRPT ---
EXAM DATE/TIME: 10/02/2017 19:19 [facility] COMPARISON: CT ABDOMEN & PELVIS W CONTRAST, April 04, 2017, 15:47. INDICATIONS : Right sided abdominal pain and blood in stool for 3 days. IV CONTRAST: 96 cc Omnipaque 350 (iohexol) IV ORAL CONTRAST: No oral contrast ingested. RADIATION DOSE: 7.09 CTDIvol (mGy) MEDICAL HISTORY : Cardiovascular disease. Hypertension. SURGICAL HISTORY : None. ENCOUNTER: Initial ACUITY: 1 day PAIN SCALE: 5/10 LOCATION: Right abdomen TECHNIQUE: Volumetric scanning of the abdomen and pelvis was performed. Using automated exposure control and ad justment of the mA and/or kV according to patient size, radiation dose was kept as low as reasonably achievable to obtain optimal diagnostic quality images. DICOM format image data is available electro nically for review and comparison. FINDINGS: LOWER LUNGS: The visualized lower lungs are clear. LIVER: Homogeneous density without lesion. There is no dilation of the biliary tree. No calcified gallston es. SPLEEN: Normal size without lesion. PANCREAS: Within normal limits. KIDNEYS: Normal in size and shape. There is no mass, stone or hydronephrosis. ADRENAL GLANDS: Slight nodularity on the left, unchanged. VASCULAR: There is no aortic aneurysm. BOWEL/MESENTERY: The stomach, small bowel, and colon demonstrate no acute abnormality. There is no free intraperitone al air or fluid. The appendix is well-visualized and normal. ABDOMINAL WALL: Within normal limits. RETROPERITONEUM: There is no lymphadenopathy. BLADDER: No wall thickening or mass. REPRODUCTIVE: Within normal limits. INGUINAL: There is no lymphadenopathy or hernia. MUSCULOSKELETAL: Within normal limits for patient age. CONCLUSION: No acute abnormality demonstrated. Zeke German MD on October 02, 2017 at 19:31 Board Certified Radiologist. This report was verified electronically.
[2017-10-02] MEDS ORDERED: PREV30CA36 PO (20:30)
== END 2017-10-02 20:40 | disposition home or self-care (01) ==
LOC: NEPD 17:15
DX: K92.2 Gastrointestinal hemorrhage, unspecified (principal); R10.13 Epigastric pain; F17.200 Nicotine dependence, unspecified, uncomplicated
CPT/HCPCS: 74177; 80053; 83690; 85025; 85610; 85730; 86850; 86900; 86901; 96374; 96375; 99285; C9113; J2405; J7030; Q9967

== ENCOUNTER 2018-07-06 17:53 | Observation (INO) ==
[2018-07-06] MEDS ORDERED: Acetaminophen 325 MG Tablet PO ONE (18:50)
--- NOTE | 2018-07-06 18:53 | ED ---
Triage General Chief Complaint: Fever Time Seen by Provider: 07/06/18 18:39 Source: patient Limitations: no limitations Pre-Hospital Care Pre-Hospital Care Given: No History of Present Illness HPI narrative: This patient presents with a one-week history of chest pain which has waxed and waned, come and gone. It is not aggravated or relieved by anything that he is noticed. He states that he also has a headache. That started today. He further reports intermittent dizzy spells. He was found to have a fever at triage. He has no idea why he is running a fever. I have initiated a chest pain workup. I have also ordered a flu screen and blood cultures for further evaluation of his fever. This patient needs to be seen in 1 of the medical pods. Home Meds Home Medications Medication Instructions Recorded Confirmed escitalopram oxalate [Lexapro] 10 mg PO DAILY 06/06/18 07/06/18 Allergies Allergies Allergy/AdvReac Type Severity Reaction Status Date / Time No Known Allergies Allergy Verified 05/18/18 18:30 Vital Signs Recall Vital Signs: Initial Documented Vital Signs Temperature 101.5 F H 07/06/18 18:19 Pulse Rate 104 H 07/06/18 18:19 Respiratory Rate 16 07/06/18 18:19 Blood Pressure 131/84 07/06/18 18:19 Pulse Oximetry 100 07/06/18 18:19 Last Documented Vital Signs Temperature 101.5 F H 07/06/18 18:19 Pulse Rate 104 H 07/06/18 18:19 Respiratory Rate 16 07/06/18 18:19 Blood Pressure 131/84 07/06/18 18:19 Pulse Oximetry 100 07/06/18 18:19 Vital Signs 3 l l l l 07/06/18 18:19 l l Height 182.88 cm l l Weight 90.718 kg l l BMI 27.1 l l BP 131/84 l l Blood Pressure Location l l Position Sitting l l Respiration 16 l l Pulse 104 H l l Pulse Source l l Temp 101.5 F H l l Temp Source Oral l l Pulse Oximetry (%) 100 l l Oxygen Delivery Method l l Oxygen Flow Rate l l Comment PMFSH Social History Social History Substance History: Active Abuse Second Hand Smoke Exposure: No Smoking Status: Former smoker Tobacco Type: Smokeless Tobacco How Often Do You Have a Drink Containing Alcohol: Never Recent Travel in [facility] within the Last 8 Weeks: No Recent Out of Country Travel within the Last 8 Weeks: No Immunization History Tetanus Immunization: <5 Years
[2018-07-06 19:26] LABS: Baso # (Auto) 0.1 th/mm3 (0.0-0.2); Baso % (Auto) 0.7 % (0.0-2.0); Eos # (Auto) 0.1 th/mm3 (0.0-0.4); Eos % (Auto) 0.7 % (0.0-4.0); Hematocrit 38.8 % (39.0-51.0); Lymph # (Auto) 1.2 th/mm3 (1.0-4.8); Lymph % (Auto) 10.7 % (9.0-44.0); Mean Corpuscular HGB Conc 33.4 % (32.0-36.0); Mean Corpuscular Hemoglobin 28.4 pg (27.0-34.0); Mean Corpuscular Volume 85.2 fL (80.0-100.0); Mono # (Auto) 1.2 th/mm3 (0.0-0.9); Mono % (Auto) 11.2 % (0.0-8.0); Neut # (Auto) 8.5 th/mm3 (1.8-7.7); Neut % (Auto) 76.7 % (16.0-70.0); Platelet Count 312 th/mm3 (150-450); Red Blood Count 4.56 mil/mm3 (4.50-5.90); Red Cell Distribution Width 14.3 % (11.6-17.2); White Blood Count 11.1 th/mm3 (4.0-11.0)
--- NOTE | 2018-07-06 19:38 | ED ---
HPI General Chief complaint: Fever Stated complaint: chest pain x 1 week Time Seen by Provider: 07/06/18 18:39 Source: patient Mode of arrival: ambulatory Limitations: no limitations History of Present Illness HPI narrative: 43yo M with PMH of hep C here with c/o midsternal chest pain for 1 week. Said it is intermittent, sharp, lasts about a minute and nonradiating. Associated with some sob, diaphoresis. Denies any cough, hemoptysis, PE/DVT, recent surgery, recent immobilization. Pt also with mild headache today that is frontal, bilateral and improved with the acetaminophen given at triage. Denies any visual changes, neck pain, focal weakness, focal numbness. +Fever today. +IVDA, last was a month ago. Father had heart attack at 43 years old. Related Data Home Medications Medication Instructions Recorded Confirmed escitalopram oxalate [Lexapro] 10 mg PO DAILY 06/06/18 07/06/18 Allergies Allergy/AdvReac Type Severity Reaction Status Date / Time No Known Allergies Allergy Verified 05/18/18 18:30 Review of Systems ROS: all other systems reviewed are negative [facility] Family History Family History Other Coronary artery disease Diabetes mellitus Social History Social History Substance History: Past History Second Hand Smoke Exposure: No Smoking Status: Former smoker Tobacco Type: Cigarettes How Often Do You Have a Drink Containing Alcohol: Never Recent Travel in [facility] within the Last 8 Weeks: No Recent Out of Country Travel within the Last 8 Weeks: No Immunization History Tetanus Immunization: <5 Years Exam Narrative Exam Narrative: GENERAL: 43yo M in mild distress. SKIN: Focused skin assessment warm/dry. HEAD: Atraumatic. Normocephalic. EYES: Pupils equal and round at 3mm bilaterally. EOMI. ENT: No nasal bleeding or discharge. Mucous membranes pink and moist. NECK: No nuchal rigidity. CARDIOVASCULAR: Regular rate and rhythm. No murmur appreciated. RESPIRATORY: No accessory muscle use. Clear to auscultation. Breath sounds equal bilaterally. GASTROINTESTINAL: Abdomen soft, non-tender, nondistended. MUSCULOSKELETAL: No obvious deformities. No clubbing. No cyanosis. No edema. NEUROLOGICAL: Awake and alert. No obvious cranial nerve deficits. Motor grossly within normal limits in all extremities. Sensation equal bilaterally. Normal speech. PSYCHIATRIC: Appropriate mood and affect; insight and judgment normal. Course Initial Documented Vital Signs Temperature 101.5 F H 07/06/18 18:19 Pulse Rate 104 H 07/06/18 18:19 Respiratory Rate 16 07/06/18 18:19 Blood Pressure 131/84 07/06/18 18:19 Pulse Oximetry 100 07/06/18 18:19 Last Documented Vital Signs Temperature 98.3 F 07/07/18 12:00 Pulse Rate 85 07/07/18 12:00 Respiratory Rate 16 07/07/18 12:00 Blood Pressure 134/74 07/07/18 12:00 Pulse Oximetry 97 07/07/18 12:00 Medical Decision Making MDM Narrative Medical decision making narrative: 43yo M with history of IVDA and significant cardiac history here with chest pain that is intermittent for a week. Pt is febrile at 101.5F here. Labs reviewed, WBC 11.1. Troponin negative. CMP unremarkable. CXR negative. Medical Screen Exam Complete: Yes Emergency Medical Condition: Yes Differential Diagnosis Differential Diagnosis: Bacterial endocarditis vs. Influenza vs. ACS vs. Pneumonia Lab Data Result diagrams: 07/07/18 06:40 07/07/18 06:40 Lab Results 07/06/18 07/06/18 07/06/18 Range/Units 19:11 19:11 20:50 WBC 11.1 H (4.0-11.0) th/mm3 RBC 4.56 (4.50-5.90) mil/mm3 Hgb 13.0 (13.0-17.0) gm/dL Hct 38.8 L (39.0-51.0) % MCV 85.2 (80.0-100.0) fL MCH 28.4 (27.0-34.0) pg MCHC 33.4 (32.0-36.0) % RDW 14.3 (11.6-17.2) % Plt Count 312 (150-450) th/mm3 MPV 6.0 L (7.0-11.0) fL Neut % (Auto) 76.7 H (16.0-70.0) % Lymph % (Auto) 10.7 (9.0-44.0) % [place] % (Auto) 11.2 H (0.0-8.0) % Eos % (Auto) 0.7 (0.0-4.0) % Baso % (Auto) 0.7 (0.0-2.0) % Neut # (Auto) 8.5 H (1.8-7.7) th/mm3 Lymph # (Auto) 1.2 (1.0-4.8) th/mm3 [place] # (Auto) 1.2 H (0.0-0.9) th/mm3 Eos # (Auto) 0.1 (0.0-0.4) th/mm3 Baso # (Auto) 0.1 (0.0-0.2) th/mm3 WBC Differential . Differential Comment Auto diff final Sodium 137 (136-145) meq/L Potassium 4.1 (3.5-5.1) meq/L Chloride 104 (98-107) meq/L Carbon Dioxide 27.7 (21.0-32.0) meq/L Anion Gap 5 (5-15) meq/L BUN 12 (7-18) mg/dL Creatinine 1.08 (0.60-1.30) mg/dL Estimated GFR 75 L (>89) mL/min Random Glucose 74 (74-106) mg/dL Lactic Acid 1.0 (0.4-2.0) mmol/L Calcium 8.8 (8.5-10.1) mg/dL Total Bilirubin 0.5 (0.2-1.0) mg/dL AST 33 (15-37) U/L ALT 64 (12-78) U/L Alkaline Phosphatase 87 (45-117) U/L Total Creatine Kinase (39-308) U/L Troponin I Less than 0.02 L (0.02-0.05) ng/mL Total Protein 7.8 (6.4-8.2) g/dL Albumin 3.5 (3.4-5.0) g/dL 07/07/18 07/07/18 07/07/18 Range/Units 00:35 06:30 06:40 WBC 5.2 D (4.0-11.0) th/mm3 RBC 4.34 L (4.50-5.90) mil/mm3 Hgb 12.5 L (13.0-17.0) gm/dL Hct 36.7 L (39.0-51.0) % MCV 84.7 (80.0-100.0) fL MCH 28.7 (27.0-34.0) pg MCHC 33.9 (32.0-36.0) % RDW 14.3 (11.6-17.2) % Plt Count 258 (150-450) th/mm3 MPV 6.3 L (7.0-11.0) fL Neut % (Auto) 49.7 (16.0-70.0) % Lymph % (Auto) 30.6 (9.0-44.0) % [place] % (Auto) 15.6 H (0.0-8.0) % Eos % (Auto) 3.1 (0.0-4.0) % Baso % (Auto) 1.0 (0.0-2.0) % Neut # (Auto) 2.6 (1.8-7.7) th/mm3 Lymph # (Auto) 1.6 (1.0-4.8) th/mm3 [place] # (Auto) 0.8 (0.0-0.9) th/mm3 Eos # (Auto) 0.2 (0.0-0.4) th/mm3 Baso # (Auto) 0.1 (0.0-0.2) th/mm3 WBC Differential . Differential Comment Auto diff final Sodium (136-145) meq/L Potassium (3.5-5.1) meq/L Chloride (98-107) meq/L Carbon Dioxide (21.0-32.0) meq/L Anion Gap (5-15) meq/L BUN (7-18) mg/dL Creatinine (0.60-1.30) mg/dL Estimated GFR (>89) mL/min Random Glucose (74-106) mg/dL Lactic Acid (0.4-2.0) mmol/L Calcium (8.5-10.1) mg/dL Total Bilirubin (0.2-1.0) mg/dL AST (15-37) U/L ALT (12-78) U/L Alkaline Phosphatase (45-117) U/L Total Creatine Kinase 126 94 (39-308) U/L Troponin I Less than 0.02 L Less than 0.02 L (0.02-0.05) ng/mL Total Protein (6.4-8.2) g/dL Albumin (3.4-5.0) g/dL 07/07/18 Range/Units 06:40 WBC (4.0-11.0) th/mm3 RBC (4.50-5.90) mil/mm3 Hgb (13.0-17.0) gm/dL Hct (39.0-51.0) % MCV (80.0-100.0) fL MCH (27.0-34.0) pg MCHC (32.0-36.0) % RDW (11.6-17.2) % Plt Count (150-450) th/mm3 MPV (7.0-11.0) fL Neut % (Auto) (16.0-70.0) % Lymph % (Auto) (9.0-44.0) % [place] % (Auto) (0.0-8.0) % Eos % (Auto) (0.0-4.0) % Baso % (Auto) (0.0-2.0) % Neut # (Auto) (1.8-7.7) th/mm3 Lymph # (Auto) (1.0-4.8) th/mm3 [place] # (Auto) (0.0-0.9) th/mm3 Eos # (Auto) (0.0-0.4) th/mm3 Baso # (Auto) (0.0-0.2) th/mm3 WBC Differential Differential Comment Sodium 141 (136-145) meq/L Potassium 4.1 (3.5-5.1) meq/L Chloride 110 H (98-107) meq/L Carbon Dioxide 27.0 (21.0-32.0) meq/L Anion Gap 4 L (5-15) meq/L BUN 10 (7-18) mg/dL Creatinine 0.89 (0.60-1.30) mg/dL Estimated GFR Greater than 89 (>89) mL/min Random Glucose 92 (74-106) mg/dL Lactic Acid (0.4-2.0) mmol/L Calcium 8.0 L D (8.5-10.1) mg/dL Total Bilirubin (0.2-1.0) mg/dL AST (15-37) U/L ALT (12-78) U/L Alkaline Phosphatase (45-117) U/L Total Creatine Kinase (39-308) U/L Troponin I (0.02-0.05) ng/mL Total Protein (6.4-8.2) g/dL Albumin (3.4-5.0) g/dL Imaging Data Radiologist's impression: Chest X-Ray 07/06/18 18:50 CONCLUSION: No active disease. Myocardial Perfusion Scan Nuc Med 07/07/18 00:00 CONCLUSION: 1. Negative examination. ECG Data EKG Prior to Arrival: No Attestation: I personally reviewed and interpreted this ECG as follows: Interpretation: NSR 85bpm. Normal axis. PA interval 157ms. No significant ST elevation or depression. Discharge Plan Discharge Disposition Patient Disposition: ED Admit(ED Internal Use Only) Discharge Order Discharge Orders: ED Use Only Admit Order (Routine); Ordered 07/06/18 Ordered By: Lillian Rockwell Discharge Details Diagnosis: Chest pain Physicians Team ED Provider: Lillian Rockwell Primary Care Provider: Primary Care Veronica Garrison Attending Provider: Carmine Swartz Status ED Status: Left Department Discharge Information Discharge Date/Time: 07/07/18 07:05
--- NOTE | 2018-07-06 19:46 | XR ---
EXAM DATE: 07/06/2018 7:42 PM EST AGE/SEX: 43 years / Male INDICATIONS: Chest pain and fever. CLINICAL DATA: This is the patient's initial encounter. Patient reports that signs and symptoms have been present for 1 week and indicates a pain score of 10/10. MEDICAL/SURGICAL HISTORY: None. None. COMPARISON: [facility] [place] 1[place] SINGLE AP, 03/20/2018. . FINDINGS: A single AP view of the chest demonstrates the lungs to be symmetrically aerated without evidence of mass, infiltrate or effusion. The cardiomediastinal contours are unremarkable. Osseous structures a re intact. CONCLUSION: No active disease. Electronically signed by: Anup Serrano MD Board Certified Radiologist 07/06/2018 7:45 PM EST
[2018-07-06 19:54] LABS: Alanine Aminotransferase 64 U/L (12-78); Alkaline Phosphatase 87 U/L (45-117); Total Protein 7.8 g/dL (6.4-8.2)
[2018-07-06 20:21] LABS: Albumin 3.5 g/dL (3.4-5.0); Anion Gap 5 meq/L (5-15); Aspartate Aminotransferase 33 U/L (15-37); Blood Urea Nitrogen 12 mg/dL (7-18); Calcium 8.8 mg/dL (8.5-10.1); Carbon Dioxide 27.7 meq/L (21.0-32.0); Chloride 104 meq/L (98-107); Glomerular Filtration Rate 75 mL/min (>89); Glucose,Random 74 mg/dL (74-106); Potassium 4.1 meq/L (3.5-5.1); Sodium 137 meq/L (136-145)
[2018-07-06] MEDS ORDERED: Aspirin 325 MG Tablet PO ONE (20:49)
[2018-07-06] MEDS ORDERED: Sod Chloride 0.9% Inj 1,000 ML IV.SIG SCH (21:00)
--- NOTE | 2018-07-06 21:38 | ECG ---
Date Performed: 07/06/2018 Time Performed: 19:34:27 PTAGE: 43 years EKG: Sinus rhythm POSSIBLE LEFT ATRIAL ENLARGEMENT INCOMPLETE RIGHT BUNDLE BRANCH BLOCK BORDERLINE ECG Compared to luis miguel or electrocardiogram, rate has slowed and incomplete right bundle branch block is not present. PREVIOUS TRACING : 05/15/2018 11.28 DOCTOR: Carroll Welsh Interpretating Date/Time 07/06/2018 21:37:16
[2018-07-06] MEDS ORDERED: Bisacodyl 10 MG Supp RECTAL PRN (21:56)
[2018-07-06] MEDS ORDERED: Acetaminophen 325 MG Tablet PO PRN (21:56)
--- NOTE | 2018-07-06 22:04 | P.HP ---
History of Present Illness Service: [facility] Primary Care Physician: No Primary Care Physician History of Present Illness: 43-year-old male with a past medical history significant for IV drug abuse presents to the emergency department for evaluation of chest pain. Patient describes the pain is substernal and a nonradiating pressure which has been intermittent for the past week. He endorses associated shortness of breath. No diaphoresis. No abdominal pain. No nausea/vomiting/diarrhea. The patient reports that he developed a fever earlier today. No neck pain or nuchal rigidity. No back pain. No focal neurologic deficits. Of note, the patient's father had a severe heart attack at the age of 43. Review of Systems All other systems reviewed negative except as stated in HPI [facility] - History History Provided By: Patient - Medical History Medical History: Medical History (Last Reviewed 07/06/18 @ 22:01 by Karina Arguelles MD) Anxiety Depression Hepatitis C - Surgical History Surgical History: Surgical History (Last Reviewed 07/06/18 @ 22:01 by Karina Arguelles MD) No history of previous surgery - Family History Family History: Family History (Last Updated 07/06/18 @ 22:02 by Karina Arguelles MD) Other Coronary artery disease Diabetes mellitus - Tobacco History Second Hand Smoke Exposure: No Smoking Status: Former smoker Tobacco Type: Smokeless Tobacco - Alcohol History How Often Do You Have a Drink Containing Alcohol: Never - Substance Use History Substance History: Active Abuse - Travel History Recent Travel in the [place] Within the Last 8 Weeks: No Recent Travel Out of the Country Within the Last 8 Weeks: No - Immunization History Tetanus Immunization: <5 Years Medications and Allergies Active Medications: Active Medications Acetaminophen (Tylenol) 650 mg PO Q4H PRN PRN Reason: Temp > 100.4 Al Hydroxide/Mg Hydroxide (Milk Of Magnesia Liq) 30 ml PO Q12H PRN PRN Reason: Mild Constipation Bisacodyl (Dulcolax Supp) 10 mg RECTAL DAILY PRN PRN Reason: SEVERE CONSITIPATION Escitalopram Oxalate (Lexapro) 10 mg PO DAILY L[place]ISA Sodium Chloride (Ns Inj) 1,000 mls @ 100 mls/hr IV.CONT .Q10H LOUISA Lactulose (Lactulose Liq) 30 ml PO DAILY PRN PRN Reason: SEVERE CONSITIPATION Ondansetron HCl (Zofran Inj) 4 mg IV.PUSH Q6H PRN PRN Reason: NAUSEA OR VOMITING Senna/Docusate Sodium (Brittany-Colace) 1 tab PO BID LOUISA Sennosides (Senokot) 17.2 mg PO Q12H PRN PRN Reason: Moderate Constipation Sodium Chloride (Ns Flush) 2 ml IV.FLUSH UNSCH PRN PRN Reason: FLUSH AFTER USING IV ACCESS Sodium Chloride (Ns Flush) 2 ml IV.FLUSH BID LOUISA Sodium Chloride (Ns Flush) 2 ml IV.FLUSH PRN PRN PRN Reason: FLUSH AFTER USING IV ACCESS Allergies Allergy/AdvReac Type Severity Reaction Status Date / Time No Known Allergies Allergy Verified 05/18/18 18:30 Home Medications Medication Instructions Recorded Confirmed Type escitalopram oxalate [Lexapro] 10 mg PO DAILY 06/06/18 07/06/18 History Exam Vital signs: Vital Signs 07/06/18 18:19 07/06/18 21:35 Temperature 101.5 F H Pulse Rate 104 H 71 Respiratory Rate 16 18 Blood Pressure 131/84 Pulse Oximetry 100 95 Intake & Output 07/06/18 07/06/18 07/07/18 06:59 18:59 06:59 Weight 90.718 kg Narrative: Gen.: No acute distress Head: Normocephalic. Atraumatic. EENT: Pupils equal round and reactive to light. Nose without drainage. Airway intact. Throat without injection. Cardiovascular: Regular rate and rhythm. No murmurs, rubs or gallops. Respiratory: Lungs clear to auscultation bilaterally. No wheezes or rhonchi. Abdomen: Soft, nontender, nondistended. No peritoneal signs. Musculoskeletal: No gross deformities. No edema. Skin: No obvious rashes or erythema. Neuro: Sensory and motor grossly intact. Cranial nerves II through XII grossly intact. Results - Labs CBC & Chem 7: 07/06/18 19:11 07/06/18 19:11 Labs: Laboratory Results - last 24 hr 07/06/18 07/06/18 19:11 19:11 WBC 11.1 H RBC 4.56 Hgb 13.0 Hct 38.8 L MCV 85.2 MCH 28.4 MCHC 33.4 RDW 14.3 Plt Count 312 MPV 6.0 L Neut % (Auto) 76.7 H Lymph % (Auto) 10.7 [place] % (Auto) 11.2 H Eos % (Auto) 0.7 Baso % (Auto) 0.7 Neut # (Auto) 8.5 H Lymph # (Auto) 1.2 [place] # (Auto) 1.2 H Eos # (Auto) 0.1 Baso # (Auto) 0.1 WBC Differential . Differential Comment Auto diff final Sodium 137 Potassium 4.1 Chloride 104 Carbon Dioxide 27.7 Anion Gap 5 BUN 12 Creatinine 1.08 Estimated GFR 75 L Random Glucose 74 Calcium 8.8 Total Bilirubin 0.5 AST 33 ALT 64 Alkaline Phosphatase 87 Troponin I Less than 0.02 L Total Protein 7.8 Albumin 3.5 - Imaging Impressions Chest X-Ray 07/06/18 18:50 CONCLUSION: No active disease. Caprini VTE Risk Assessment Caprini VTE Risk Assessment: No/Low Risk (score <= 1) Caprini Risk Assessment Model: Point Value = 1 Point Value = 2 Point Value = 3 Point Value = 5 Age 41-60 Minor surgery BMI > 25 kg/m2 Swollen legs Varicose veins or History of unexplained or recurrent spontaneous Oral contraceptives or hormone replacement Sepsis (< 1 month) Serious lung disease, including pneumonia (< 1 month) Abnormal pulmonary function Acute myocardial infarction Congestive heart failure (< 1 month) History of inflammatory bowel disease Medical patient at bed rest Age 61-74 Arthroscopic surgery Major open surgery (> 45 min) Laparoscopic surgery (> 45 min) Malignancy Confined to bed (> 72 hours) Immobilizing plaster cast Central venous access Age >= 75 History of VTE Family history of VTE Factor V Leiden Prothrombin [id number] Lupus anticoagulant Anticardiolipin antibodies Elevated serum homocysteine Heparin-induced thrombocytopenia Other congenital or acquired thrombophilia Stroke (< 1 month) Elective arthroplasty Hip, pelvis, or leg fracture Acute spinal cord injury (< 1 month) Prophylaxis Regimen: Total Risk Factor Score Risk Level Prophylaxis Regimen 0-1 Low Early ambulation 2 Moderate Order ONE of the following: *Sequential Compression Device (SCD) *Heparin 5000 units SQ BID 3-4 Higher Order ONE of the following medications: *Heparin 5000 units SQ TID *Enoxaparin/Lovenox 40 mg SQ daily (WT < 150 kg, CrCl > 30 mL/min) *Enoxaparin/Lovenox 30 mg SQ daily (WT < 150 kg, CrCl > 10-29 mL/min) *Enoxaparin/Lovenox 30 mg SQ BID (WT < 150 kg, CrCl > 30 mL/min) AND/OR *Sequential Compression Device (SCD) 5 or more Highest Order ONE of the following medications: *Heparin 5000 units SQ TID (Preferred with Epidurals) *Enoxaparin/Lovenox 40 mg SQ daily (WT < 150 kg, CrCl > 30 mL/min) *Enoxaparin/Lovenox 30 mg SQ daily (WT < 150 kg, CrCl > 10-29 mL/min) *Enoxaparin/Lovenox 30 mg SQ BID (WT < 150 kg, CrCl > 30 mL/min) AND *Sequential Compression Device (SCD) Assessment and Plan - Plan Assessment/plan: 1. Chest pain Initial troponin negative EKG shows incomplete right bundle branch block, sinus rhythm without ST segment elevation or depression, personally reviewed ACS rule out pending; serial troponins/EKGs 2. Fever/can not exclude endocarditis Blood cultures pending Echo pending FEN N.p.o. Electrolytes: Monitor and replete as needed NS at 100 cc/hour
[2018-07-06] MEDS: Sod Chloride 0.9% Inj 1,000 ML IV.CONT SCH (23:55)
[2018-07-07 01:12] LABS: Creatine Kinase 126 U/L (39-308)
[2018-07-07] MEDS: Sod Chloride 0.9% Inj 1,000 ML IV.CONT SCH ×2 (06:10→10:30)
[2018-07-07 07:29] LABS: Creatine Kinase 94 U/L (39-308)
[2018-07-07 07:36] LABS: Baso # (Auto) 0.1 th/mm3 (0.0-0.2); Eos # (Auto) 0.2 th/mm3 (0.0-0.4); Eos % (Auto) 3.1 % (0.0-4.0); Hematocrit 36.7 % (39.0-51.0); Hemoglobin 12.5 gm/dL (13.0-17.0); Lymph # (Auto) 1.6 th/mm3 (1.0-4.8); Lymph % (Auto) 30.6 % (9.0-44.0); Mean Corpuscular HGB Conc 33.9 % (32.0-36.0); Mean Corpuscular Hemoglobin 28.7 pg (27.0-34.0); Mean Corpuscular Volume 84.7 fL (80.0-100.0); Mean Platelet Volume 6.3 fL (7.0-11.0); Mono # (Auto) 0.8 th/mm3 (0.0-0.9); Mono % (Auto) 15.6 % (0.0-8.0); Neut # (Auto) 2.6 th/mm3 (1.8-7.7); Neut % (Auto) 49.7 % (16.0-70.0); Platelet Count 258 th/mm3 (150-450); Red Blood Count 4.34 mil/mm3 (4.50-5.90); Red Cell Distribution Width 14.3 % (11.6-17.2); White Blood Count 5.2 th/mm3 (4.0-11.0)
[2018-07-07 07:57] LABS: Anion Gap 4 meq/L (5-15); Blood Urea Nitrogen 10 mg/dL (7-18); Chloride 110 meq/L (98-107); Glomerular Filtration Rate Greater Than 89 mL/min (>89); Glucose,Random 92 mg/dL (74-106); Potassium 4.1 meq/L (3.5-5.1); Sodium 141 meq/L (136-145)
[2018-07-07] MEDS ORDERED: Escitalopram 10 MG Tablet PO SCH (09:00)
[2018-07-07] MEDS ORDERED: Senna/Docusate Sodium 8.6/50 MG Tablet PO SCH (09:00)
[2018-07-07] MEDS ORDERED: Regadenoson Inj 0.4 MG/5 ML Syringe IV.PUSH ONE (10:07)
--- NOTE | 2018-07-07 11:52 | P.PN ---
Subjective Interval history: Follow up for chest pain: Patient seen and examined, no chest pain overnight, no shortness of breath. Telemetry reviewed, sinus bradycardia. States last time he used cocaine was 1 month ago. Endorses family history of coronary artery disease, father had heart attack at age 50. No fever overnight, no chills. No nausea, no vomiting, no diarrhea. Physical Exam Vital signs: Vital Signs 07/06/18 18:19 07/06/18 21:35 07/07/18 00:00 Temperature 101.5 F H 98.5 F Pulse Rate 104 H 71 63 Respiratory Rate 16 18 16 Blood Pressure 131/84 109/55 L Pulse Oximetry 100 95 98 07/07/18 00:32 07/07/18 04:00 Temperature 98.0 F Pulse Rate 57 L Respiratory Rate 16 Blood Pressure 104/53 L Pulse Oximetry 98 98 Intake & Output 07/06/18 07/07/18 07/07/18 18:59 06:59 18:59 Intake Total 1000 / 1000 1000 / 1000 Balance 1000 / 1000 1000 / 1000 Weight 90.718 kg 90.718 kg Intake: IV 1000 / 1000 1000 / 1000 NS Inj 1,000 ML @ 100 mls/hr IV 1000 / 1000 .CONT .Q10H LOUISA Rx#:[id number] NS Inj 1,000 ML @ 1000 mls/hr 1000 / 1000 IV.SIG BOLUS LOUISA Rx#:[id number] Oral 0 / 0 Other: # Voids 2 Weight On Admission 90.718 kg Narrative: Gen.: 43-year-old well-developed well-nourished male. Head: Normocephalic. Atraumatic. EENT: Pupils equal round and reactive to light. Nose without drainage. Airway intact. Throat without injection. Cardiovascular: Regular rate and rhythm. No murmurs, rubs or gallops. Respiratory: Lungs clear to auscultation bilaterally. No wheezes or rhonchi. Abdomen: Soft, nontender, nondistended. No peritoneal signs. Musculoskeletal: No gross deformities. No edema. Skin: No obvious rashes or erythema. Neuro: Awake, alert oriented x3. No focal deficits. Results - Labs CBC & Chem 7: 07/07/18 06:40 07/07/18 06:40 Laboratory Results - last 24 hr 07/06/18 07/06/18 07/06/18 19:11 19:11 20:50 WBC 11.1 H RBC 4.56 Hgb 13.0 Hct 38.8 L MCV 85.2 MCH 28.4 MCHC 33.4 RDW 14.3 Plt Count 312 MPV 6.0 L Neut % (Auto) 76.7 H Lymph % (Auto) 10.7 Harper % (Auto) 11.2 H Eos % (Auto) 0.7 Baso % (Auto) 0.7 Neut # (Auto) 8.5 H Lymph # (Auto) 1.2 Harper # (Auto) 1.2 H Eos # (Auto) 0.1 Baso # (Auto) 0.1 WBC Differential . Differential Comment Auto diff final Sodium 137 Potassium 4.1 Chloride 104 Carbon Dioxide 27.7 Anion Gap 5 BUN 12 Creatinine 1.08 Estimated GFR 75 L Random Glucose 74 Lactic Acid 1.0 Calcium 8.8 Total Bilirubin 0.5 AST 33 ALT 64 Alkaline Phosphatase 87 Total Creatine Kinase Troponin I Less than 0.02 L Total Protein 7.8 Albumin 3.5 07/07/18 07/07/18 07/07/18 00:35 06:30 06:40 WBC 5.2 D RBC 4.34 L Hgb 12.5 L Hct 36.7 L MCV 84.7 MCH 28.7 MCHC 33.9 RDW 14.3 Plt Count 258 MPV 6.3 L Neut % (Auto) 49.7 Lymph % (Auto) 30.6 Harper % (Auto) 15.6 H Eos % (Auto) 3.1 Baso % (Auto) 1.0 Neut # (Auto) 2.6 Lymph # (Auto) 1.6 Harper # (Auto) 0.8 Eos # (Auto) 0.2 Baso # (Auto) 0.1 WBC Differential . Differential Comment Auto diff final Sodium Potassium Chloride Carbon Dioxide Anion Gap BUN Creatinine Estimated GFR Random Glucose Lactic Acid Calcium Total Bilirubin AST ALT Alkaline Phosphatase Total Creatine Kinase 126 94 Troponin I Less than 0.02 L Less than 0.02 L Total Protein Albumin 07/07/18 06:40 WBC RBC Hgb Hct MCV MCH MCHC RDW Plt Count MPV Neut % (Auto) Lymph % (Auto) Harper % (Auto) Eos % (Auto) Baso % (Auto) Neut # (Auto) Lymph # (Auto) Harper # (Auto) Eos # (Auto) Baso # (Auto) WBC Differential Differential Comment Sodium 141 Potassium 4.1 Chloride 110 H Carbon Dioxide 27.0 Anion Gap 4 L BUN 10 Creatinine 0.89 Estimated GFR Greater than 89 Random Glucose 92 Lactic Acid Calcium 8.0 L D Total Bilirubin AST ALT Alkaline Phosphatase Total Creatine Kinase Troponin I Total Protein Albumin Microbiology 07/06/18 19:11 Blood - Peripheral Aerobic Blood Culture - Preliminary No growth in 1 day 07/06/18 19:11 Blood - Peripheral Anaerobic Blood Culture - Preliminary No growth in 1 day 07/06/18 19:11 Blood - Peripheral Aerobic Blood Culture - Preliminary No growth in 1 day 07/06/18 19:11 Blood - Peripheral Anaerobic Blood Culture - Preliminary No growth in 1 day 07/06/18 19:49 Nasal Wash Influenza Types A,B Antigen - Final Negative for FLU A and B antigen Infection due to influenza A or B cannot be ruled out since the antigen present in the sample may be below the detection limit of the test. - Imaging Impressions Chest X-Ray 07/06/18 18:50 CONCLUSION: No active disease. Assessment and Plan - Plan 43-year-old male with a past medical history significant for IV drug abuse presents to the emergency department for evaluation of chest pain. Patient described the pain is substernal and a nonradiating pressure which has been intermittent for the past week. He endorses associated shortness of breath. No diaphoresis. No abdominal pain. No nausea/vomiting/diarrhea. The patient reports that he developed a fever earlier today. No neck pain or nuchal rigidity. No back pain. No focal neurologic deficits. Of note, the patient's father had a severe heart attack at the age of 43. Chest pain Initial troponin negative EKG shows incomplete right bundle branch block, sinus rhythm without ST segment elevation or depression -Serial trop negative -Continue aspirin 325 mg p.o. daily We will do Lexiscan, follow-up on results Fever/can not exclude endocarditis -Blood cultures pending -Echo pending -Monitor for fever, we will not initiate antibiotics at this time History of IV drug use, relapse approximately a month ago. -Patient has been counseled about IV drug use and its implications such as sepsis, stroke, possibly . Hx of hepatitis B and C -follow up with PCP SCDs for DVT prophylaxis We will follow up on Lexiscan results Code Status: Full code Discussed Condition With: RN, patient, significant, therapeutic case manager Discharge Planning: Possibly home tomorrow if cultures negative and Lexiscan negative
--- NOTE | 2018-07-07 12:05 | ECHRPT ---
Indication: SEPSIS POSS ENDOCARDITIS CONCLUSIONS Normal left ventricular size. Wall thickness is normal. The left ventricular systolic function is normal with an estimated ejection fraction in the range of 55-60%. [id number] mitral valve regurgitation. There is trace tricuspid valve regurgitation. The estimated pulmonary arterial pressure is 39 mmHg. BP: / HR: Rhythm: Sinus MEASUREMENTS (Male / Female) Normal Values Technical Quality:Fair 2D ECHO LV Diastolic Diameter PLAX 5.6 cm 4.2 - 5.9 / 3.9 - 5.3 cm LV Systolic Diameter PLAX 4.1 cm IVS Diastolic Thickness 0.8 cm 0.6 - 1.0 / 0.6 - 0.9 cm LVPW Diastolic Thickness 0.9 cm 0.6 - 1.0 / 0.6 - 0.9 cm LV Relative Wall Thickness 0.3 RV Internal Dim ED PLAX 3.6 cm LVOT Diameter 2.0 cm Aortic Root Diameter 3.0 cm LA Systolic Diameter LX 2.8 cm 3.0 - 4.0 / 2.7 - 3.8 cm M-MODE AV Cusp Separation MM 1.9 cm DOPPLER AV Peak Velocity 159.0 cm/s AV Peak Gradient 10.1 mmHg LVOT Peak Velocity 126.0 cm/s LVOT Peak Gradient 6.4 mmHg AV Area Cont Eq pk 2.5 cm Mitral E Point Velocity 79.5 cm/s Mitral A Point Velocity 62.7 cm/s Mitral E to A Ratio 1.3 LV E' Lateral Velocity 13.6 cm/s Mitral E to LV E' Lateral Ratio 5.8 LV E' Septal Velocity 8.0 cm/s Mitral E to LV E' Septal Ratio 9.9 TR Peak Velocity 270.0 cm/s TR Peak Gradient 29.2 mmHg Right Atrial Pressure 10.0 mmHg Pulmonary Artery Systolic Pressu 39.2 mmHg Right Ventricular Systolic Press 39.2 mmHg PV Peak Velocity 118.0 cm/s PV Peak Gradient 5.6 mmHg FINDINGS LEFT VENTRICLE Normal left ventricular size. Wall thickness is normal. The left ventricular systolic function is normal with an estimated ejection fraction in the range of 55-60%. RIGHT VENTRICLE Normal right ventricular size and systolic function. LEFT ATRIUM The left atrial size is normal. RIGHT ATRIUM The right atrial size is normal. ATRIAL SEPTUM Normal atrial septal thickness without atrial level shunting by limited color doppler interrogation. AORTA The aortic root and proximal ascending aorta are normal in size on limited imaging. MITRAL VALVE [id number] mitral valve regurgitation. AORTIC VALVE Trileaflet aortic valve. No aortic valve stenosis or regurgitation. TRICUSPID VALVE There is trace tricuspid valve regurgitation. The estimated pulmonary arterial pressure is 39 mmHg. PULMONARY VALVE No pulmonary valve regurgitation or stenosis. VESSELS The inferior vena cava is normal in size. PERICARDIUM No pericardial effusion. Chris Beckford MD, FACC (Electronically Signed) Final Date:07 July 2018 12:04
--- NOTE | 2018-07-07 14:20 | NM ---
EXAM DATE: 07/07/2018 2:10 PM EST AGE/SEX: 43 years / Male INDICATIONS:Abnormal EKG. . Chest pain with headache and dizziness. CLINICAL DATA: This is the patient's initial encounter. Patient reports that signs and symptoms have been present for 1 week and indicates a pain score of 6/10. MEDICAL/SURGICAL HISTORY: Hepatitis C. None. COMPARISON: No prior exams available for comparison. DOSE: 8.5 mCi Tc 99m Myoview at rest 26.5 mCi [id number] at stress 0.4 mg Lexiscan STRESS SYMPTOMS: None. EJECTION FRACTION: 49 % TECHNIQUE: The patient underwent pharmacologic stress with infusion of prescribed dose. Continuous ECG tracing was monitored during stress. Gated SPECT imaging was performed after stress and conventi onal SPECT imaging was performed at rest. The examination was performed on a SPECT/CT scanner, both attenuation and non-corrected datasets were reviewed. FINDINGS: Distribution: The maximum perfused segment at stress is in the septal wall. Perfusion Study: The pattern of perfusion at stress is within normal limits. Gated Study: There are intact wall motion and wall thickening without hypokinetic or dyskinetic segm ents. The ejection fraction is calculated at 49%. RISK CATEGORY: Low (<1% Annual Mortality Rate) CONCLUSION: 1. Negative examination. Electronically signed by: Severino Kolb MD Board Certified Radiologist 07/07/2018 2:18 PM EST
[2018-07-08] MEDS ORDERED: Aspirin 325 MG Tablet PO SCH (09:00)
== END 2018-07-07 20:23 | disposition left against medical advice (07) ==
LOC: NEDA 17:53 → NEPC 17:53 → NEPGCP 22:57
PROVIDERS: ADMIT Hospitalist; ATTEND Hospitalist
CPT/HCPCS: 71010; 71045; 78452; 80048; 80053; 82550; 83605; 84484; 85025; 87040; 87275; 87276; 87804; 93005; 93017; 93306; 96360; 96361; 99285; A9502; G0378; J2785; J7030